=== PATIENT | female | born 1950 | race American Indian/Alaskan Native ===

== ENCOUNTER 2019-01-14 10:43 | Inpatient (IN) | payer MEDICARE ==
[2019-01-14] MEDS ORDERED: DEXTROSE 50% IN WATER (25GM) 50 ML SYRINGE IV PRN (13:57)
[2019-01-14] MEDS ORDERED: POLYETHYLENE GLYCOL 3350 17 GM POWDER PO PRN (14:10)
[2019-01-14] MEDS ORDERED: ONDANSETRON 4 MG ODT TAB PO PRN (14:10)
[2019-01-14] MEDS ORDERED: ACETAMINOPHEN 325 MG TAB PO PRN (14:10)
[2019-01-14] MEDS ORDERED: oxyCODONE /ACETAMINOPHEN 5-325MG TAB PO PRN (14:12)
--- NOTE | 2019-01-14 16:06 | History and Physical Report ---
History of Present Illness Date: 01/14/19 Date of admission: 01/14/19 15:47 Chief Complaint: CVA History of present illness: 68-year-old female who presented with progressive right-sided weakness over a period of 2 weeks. After symptoms had not improved in that. At time she decided to seek assistance at the ER. She was admitted for presumptive CVA, CT of the head showed bilateral basal ganglia age indeterminate infarcts. Later an MRI was obtained which showed chronic small vessel disease and multiple lacunar infarcts but no findings of an acute CVA (however a left MCA CVA was mentioned in discharge paperwork, perhaps they were able to see something on imaging that the radiologist missed and that I cannot see with just the available report). She does not seek medical treatment on a regular basis and has untreated type 2 diabetes, A1c is 13.3. She was also found to be anemic but does not appear to have been treated for iron deficiency. We will reorder an anemia workup and treat appropriately. She was seen by therapy and determined to be a good c andidate for acute inpatient rehabilitation. Patient also states that she does not have part B for her Medicare and does not see an physician on the outside. We'll need to have social work speak with her and help her with some programs to get her better coverage if she will need to have outpatient follow-up going forward with the stroke and the poorly controlled diabetes. After the patient was medically stabilized they were transferred for further rehabilitation. All available medical records have been reviewed. Plan of care was discussed with patient. Past History Past Medical History: diabetes Past Surgical History: No surgical history Social history: lives with family (daughter), smoking, full code, other (1 level home. Stopped driving on her own.). denies: alcohol abuse, IV drug use Family history: hypertension Medications and Allergies Allergies Allergy/AdvReac Type Severity Reaction Status Date / Time No Known Allergies Allergy Verified 01/14/19 14:21 Active Meds: Active Medications Acetaminophen (Tylenol) 650 mg PO Q6H PRN PRN Reason: Non Cardiac Pain or Temp>100.5 Aspirin (Ecotrin) 325 mg PO QDAY BRUCE Atorvastatin Calcium (Lipitor) 40 mg PO QHS BRUCE Bisacodyl (Dulcolax) 10 mg RI QDAY PRN PRN Reason: Constipation Dextrose (D50w (25gm) Syringe) 50 ml IV Q30MIN PRN; Protocol PRN Reason: Hypoglycemia Enoxaparin Sodium (Enoxaparin) 40 mg SUB-Q QDAY BRUCE Glimepiride (Amaryl) 1 mg PO QDDIAB [facility] Insulin Human Lispro (Humalog) 0 unit SUB-Q ACHS [facility]; Protocol Metformin HCl (Glucophage) 500 mg PO BIDDIAB [facility] Ondansetron HCl (Zofran Odt) 4 mg PO Q8H PRN PRN Reason: Nausea And Vomiting Oxycodone/Acetaminophen (Percocet 5/325) 1 tab PO Q8H PRN PRN Reason: Pain, Moderate (4-6) Polyethylene Glycol (Miralax 3350) 17 gm PO QDAY PRN PRN Reason: Constipation Review of Systems All systems: negative (ROS negative for 12 systems except as noted below with pertinent positives and negatives.) Constitutional: no weight loss, no fever Ears, nose, mouth and throat: no decreased hearing Cardiovascular: no chest pain, no palpitations Respiratory: no cough Gastrointestinal: constipation, no abdominal pain, no nausea, no vomiting, no diarrhea Integumentary: no rash, no pruritis Neurological: parathesias, lack of coordination, gait dysfunction Exam - Exam Narrative exam: MUSCULOSKELETAL SPECIALTY EXAM CONSTITUTIONAL: Well developed, well nourished, appropriately groomed. RIGHT hand dominant. LYMPHATIC: No appreciable abnormalities palpable in neck RESPIRATORY: Clear to auscultation bilaterally, no increased work of breathing CARDIOVASCULAR: Regular Rate/ Rhythm, no swelling, edema or tenderness in BUE or BLE. Pulses palpable in all extremities. All extremities warm. GI: + bowel sounds, soft, NTTP, nondistended. INTEGUMENTARY: Normal, no lesion, rash, masses or bruising noted in extremities. MUSCULOSKELETAL: BUE and BLE normal without defect, crepitus, subluxation, effusion, arthritic changes or TTP. R 3/5 UE 4-/5 LE L 5/5 ROM decreased on right Tone increased on RUE, normal otherwise NEURO: CN II : Visual perales full to confrontation CN II, III : PERRL CN III, IV, : EOMI CN V : Facial sensation intact CN VII : Right facial droop CN VIII : Hearing intact to finger rustle CN IX, X : Palate/uvula elevate midline, phonation normal CN XI : Decreased shoulder shrug on right, normal on left and head rotation CN XII : Tongue protrudes midline Sensation intact in all extremities with extinction on right. Reflexes 3+ on Right and 2+ on left at biceps, brachioradialis and patella. No clonus at ankles. Coordination impaired in RUE. No tremor noted in 4 extremities. Naming and repetition intact. Follows 2 step commands. Aphasia not appreciated Dysarthria not appreciated Dysphagia not appreciated Neglect not appreciated POSTURE and GAIT: Sitting posture good. Balance appears reasonable. Gait deferred until seen with therapy. PSYCH: Alert, oriented x3, affect appears flat. Insight appears intact. Assessment and Plan Assessment and plan: Patient was assessed and evaluated for Acute Inpatient Rehab Unit. Due to the patients above-mentioned medical complexity, along with decreased functional mobility and self care, this patient continues to require and be appropriate for a comprehensive, multidisciplinary [id number] rehabilitation program. These needs cannot be met in an outpatient or other less intensive setting. The patient would continue to benefit from skilled therapy intervention for at least 3 hours per day, five days a week, with techniques specific to the needs of the patient to improve function, activities of daily living, and reintegration into the community. The patient continues to require: -- OT to improve ROM, self-care, and learn use of adaptive equipment -- PT to improve strength and balance, functional transfers, and ambulation with energy conservation techniques to improve functional mobility -- [employer]HOU[employer] to address cognitive deficits and swallowing ability -- 24 hour RN to ensure and prevent skin breakdown, promote progressive independence while ensuring safety, ensure education regarding medications, and incorporation of the rehabilitation at the bedside -- 24 hour Top Stitcher to coordinate this interdisciplinary program, and to manage/prevent complications as a result of the patients medical comorbidities. -Plan of care by day 4 -Weekly team conferences With such a program, there is a reasonable certainty that the goals individualized for this patient can be achieved within the specified length of stay. CVA: Continue secondary stroke prevention. Discussed prognosis and recovery time frame with patient. Explained secondary stroke prevention. Discussed access to outpatient healthcare as well as her need to discontinue tobacco use. Diabetes, poorly controlled: Continue medications and adjust as needed for improved glycemic control. A1c greater than 13 at outside hospital. We'll need to follow-up with a new PCP and also will need diabetic teaching. Constipation: Start bowel medications. Will use suppository tonight as it's been a week since she's had a bowel movement. Anemia: Microcytic and iron deficient at outside hospital however treatment was not started. We'll recheck anemia profile to make sure that nothing is change in with the information gained tomorrow will start iron replacement as necessary. Z73.6 ADL dysfunction: OT will work on improving ability to perform ADLs (including assistive devices) to increase independence and decrease caregiver burden and improve functional transfers and mobility training. R26.2 Difficulty walking: PT will work on gait training and proper use of assistive devices and advance as appropriate to use of stairs and outside ambulation on uneven surfaces. R26.81 Unsteadiness on feet: PT will work on improving static and dynamic s itting and standing balance as well as proper use of assistive devices to decrease risk of falls. R26.89 Abnormality of gait: PT will work to improve safety and efficiency of gait through neuromotor training and gait training along with instruction on proper use of assistive devices. M62.81 Muscle weakness: PT & OT will work on strengthening exercises to improve functional strength including mixture of closed and open kinetic chain exercises. R53.81 Debility: PT & OT will work on improving overall functional status to improve participation with ADLs, mobility and social involvement. R53.83 Fatigue: PT & OT will work on improving endurance through aerobic exercises and therapeutic activity while monitoring patients tolerance for activity and vital signs as needed. DVT ppx: Lovenox Pain: Continue physical modalities in therapy and pain medications as needed to achieve functional pain control. Sleep: Monitor and address as needed. Bowel: Monitor and address as needed. Appetite: Monitor and address as needed. Discharge planning: Pending therapy progress and care plan meeting. Will continue discussion with therapy team, SW, patient and family. Restrictions/ Precautions: Falls, stroke WB status: FWB Functional Hx: ADLs: Independent Cognition: Independent Mobility: No AD Barriers to Discharge: Decreased mobility and ability to perform self care, balance deficits, weakness Estimated Length of Stay: 1421 days Discharge Destination: Home with family POST ADMISSION PHYSICIAN EVALUATION I have examined the patient and find that functional status, medical condition and appropriateness for IRF admission are essentially unchanged from those described in the preadmission screening. Will monitor for worsening CVA, post stroke depression, shoulder-hand syndrome, DVT/PE, bowel and bladder complications and complications due to uncontrolled diabetes, anemia and electrolyte abnormalities. Will attempt to avoid occurrence of these issues or treat them if they present themselves.
[2019-01-14] MEDS: metFORMIN 500 MG TAB PO SCH (17:45)
[2019-01-14] MEDS: INSULIN LISPRO 100 UNIT/ML SUB-Q SCH ×2 (17:45→22:29)
[2019-01-15] MEDS ORDERED: cloNIDine 0.1 MG TAB PO ONE (06:20)
[2019-01-15 06:38] LABS: Basophils % (Auto) 0.5 % (0.0-1.8); Eosinophils # (Auto) 0.1 K/mm3 (0.0-0.4); Eosinophils % (Auto) 0.8 % (0.0-4.3); Hematocrit 30.1 % (30.3-42.9); Hemoglobin 9.1 gm/dl (10.1-14.3); Lymphocytes # (Auto) 1.9 K/mm3 (1.2-5.4); Lymphocytes % (Auto) 28.7 % (13.4-35.0); Mean Corpuscular HGB Conc 30 % (30-34); Monocytes # (Auto) 0.6 K/mm3 (0.0-0.8); Monocytes % (Auto) 8.6 % (0.0-7.3); Platelet Count 215 K/mm3 (140-440); Red Blood Count 4.84 M/mm3 (3.65-5.03); Red Cell Distribution Width 18.8 % (13.2-15.2)
[2019-01-15 06:42] LABS: Mean Corpuscular Volume 62 fl (79-97)
[2019-01-15 06:56] LABS: Alanine Aminotransferase 92 units/L (7-56); Albumin 3.5 g/dL (3.9-5); BUN/Creatinine Ratio 15; Blood Urea Nitrogen 12 mg/dL (7-17); Calcium 8.9 mg/dL (8.4-10.2); Hemolysis Index 0
[2019-01-15] MEDS ORDERED: GLIMEPIRIDE 2 MG TAB PO SCH ×2 (08:00→10:50)
[2019-01-15] MEDS: ASPIRIN EC 325 MG TAB PO SCH (08:48)
[2019-01-15] MEDS: metFORMIN 500 MG TAB PO SCH ×2 (08:48→18:11)
[2019-01-15] MEDS: INSULIN LISPRO 100 UNIT/ML SUB-Q SCH ×4 (08:50→22:05)
[2019-01-15] MEDS: ENOXAPARIN 40 MG/0.4 ML INJ SUB-Q SCH (08:50)
--- NOTE | 2019-01-15 10:44 | Progress Note ---
Subjective Date of service: 01/15/19 Principal diagnosis: CVA Interval history: 68-year-old female who presented with progressive right-sided weakness over a period of 2 weeks. After symptoms had not improved in that. At time she decided to seek assistance at the ER. She was admitted for presumptive CVA, CT of the head showed bilateral basal ganglia age indeterminate infarcts. Later an MRI was obtained which showed chronic small vessel disease and multiple lacunar infarcts but no findings of an acute CVA (however a left MCA CVA was mentioned in discharge paperwork, perhaps they were able to see something on imaging that the radiologist missed and that I cannot see with just the available report). She does not seek medical treatment on a regular basis and has untreated type 2 diabetes, A1c is 13.3. She was also found to be anemic but does not appear to have been treated for iron deficiency. We will reorder an anemia workup and treat appropriately. She was seen by therapy and determined to be a good candidate for acute inpatient rehabilitation. Patient also states that she does not have part B for her Medicare and does not see an physician on the outside. We'll need to have social work speak with her and help her with some programs to get her better coverage if she will need to have outpatient follow-up going forward with the stroke and the poorly controlled diabetes. Patient is participating in therapy and making reasonable progress. Taking rest breaks as needed. +BM. Denies pain, palpitations, dyspnea, cough, N/V, or joint pain. Does have some dizziness currently. BP 88/49. Was called this AM and informed that SBP has been 160-180s overnight. Gave clonidine 0.1mg x 1 dose. BP went from 185/69 to 108/59 and is now at 88/49 6hrs later. Will start IV fluids and check orthostats. Start low dose lisinopril in AM. GLU is elevated, increase glimeperide. Start iron and Vit C for anemia and monitor Hgb. Discussed with patient All records, vitals, labs and medications were reviewed. No other issues per patient, nursing or therapy. Objective - Exam Narrative Exam: MUSCULOSKELETAL SPECIALTY EXAM CONSTITUTIONAL: Well developed, well nourished, appropriately groomed. RIGHT hand dominant. RESPIRATORY: Clear to auscultation bilaterally, no increased work of breathing CARDIOVASCULAR: Regular Rate/ Rhythm, no swelling, edema or tenderness in BUE or BLE. All extremities warm. GI: + bowel sounds, soft, NTTP, nondistended. INTEGUMENTARY: Normal, no lesion, rash, masses or bruising noted in extremities. MUSCULOSKELETAL: BUE and BLE normal without defect, crepitus, subluxation, effusion, arthritic changes or TTP. R 2/5 UE, weaker today, post therapy and tired 4-/5 LE L 5/5 ROM decreased on right Tone increased on RUE, normal otherwise NEURO: CN VII : Right facial droop CN XI : Decreased shoulder shrug on right, normal on left and head rotation Sensation intact in all extremities with extinction on right. No tremor noted in 4 extremities. Naming and repetition intact. Follows 2 step commands. Aphasia not appreciated Dysarthria not appreciated Dysphagia not appreciated Neglect not appreciated POSTURE and GAIT: Sitting posture good. Balance appears reasonable. Gait deferred until seen with therapy. PSYCH: Alert, oriented x3, affect appears flat. Insight appears intact. - Constitutional Vitals: Vital Signs - 12hr 01/15/19 01/15/19 01/15/19 05:01 06:20 07:53 Temperature 36.4 C L 36.8 C Pulse Rate 81 83 72 Respiratory 18 16 Rate Blood Pressure 173/81 185/69 108/59 O2 Sat by Pulse 97 96 Oximetry - Allied health notes Allied health notes reviewed: nursing, PT, ST, OT FIMS assessment as documented by PT/OT/ST: Social interaction/Memory/Problem solving Social Interaction FIM Score 7. Complete [place] (Interacts appropriately. Controls temper.) Memory FIM Score 7. Complete [place] (Remembers people and routines.) Problem Solving FIM Score 6. Mod. [place] (Mild difficulty or needs more time w/ complex.) - Labs CBC & Chem 7: 01/15/19 06:09 01/15/19 06:09 Labs: Laboratory Results - last 72 hr 01/14/19 01/14/19 01/15/19 17:22 21:22 06:09 WBC 6.8 RBC 4.84 Hgb 9.1 L Hct 30.1 L MCV 62 L MCH 19 L MCHC 30 RDW 18.8 H Plt Count 215 Lymph % (Auto) 28.7 [place] % (Auto) 8.6 H Eos % (Auto) 0.8 Baso % (Auto) 0.5 Lymph # 1.9 [place] # 0.6 Eos # 0.1 Baso # 0.0 Seg Neutrophils % 61.4 Seg Neutrophils # 4.2 Sodium Potassium Chloride Carbon Dioxide Anion Gap BUN Creatinine Estimated GFR BUN/Creatinine Ratio Glucose POC Glucose 272 H 291 H Calcium Magnesium Iron TIBC Ferritin Total Bilirubin AST ALT Alkaline Phosphatase Total Protein Albumin Albumin/Globulin Ratio Vitamin B12 Folate 01/15/19 01/15/19 01/15/19 06:09 06:09 06:09 WBC RBC Hgb Hct MCV MCH MCHC RDW Plt Count Lymph % (Auto) [place] % (Auto) Eos % (Auto) Baso % (Auto) Lymph # [place] # Eos # Baso # Seg Neutrophils % Seg Neutrophils # Sodium 137 Potassium 4.3 Chloride 102.5 Carbon Dioxide 25 Anion Gap 14 BUN 12 Creatinine 0.8 Estimated GFR > 60 BUN/Creatinine Ratio 15 Glucose 238 H POC Glucose Calcium 8.9 Magnesium 1.80 Iron 15 L TIBC 233 L Ferritin 359.0 Total Bilirubin 0.60 AST 74 H ALT 92 H Alkaline Phosphatase 229 H Total Protein 6.9 Albumin 3.5 L Albumin/Globulin Ratio 1.0 Vitamin B12 Folate 01/15/19 01/15/19 01/15/19 06:09 06:09 08:03 WBC RBC Hgb Hct MCV MCH MCHC RDW Plt Count Lymph % (Auto) [place] % (Auto) Eos % (Auto) Baso % (Auto) Lymph # [place] # Eos # Baso # Seg Neutrophils % Seg Neutrophils # Sodium Potassium Chloride Carbon Dioxide Anion Gap BUN Creatinine Estimated GFR BUN/Creatinine Ratio Glucose POC Glucose 270 H Calcium Magnesium Iron TIBC Ferritin Total Bilirubin AST ALT Alkaline Phosphatase Total Protein Albumin Albumin/Globulin Ratio Vitamin B12 1169 H Folate 11.44 Assessment and Plan CVA: Continue secondary stroke prevention. Discussed prognosis and recovery time frame with patient. Explained secondary stroke prevention. Discussed access to outpatient healthcare as well as her need to discontinue tobacco use. Diabetes, poorly controlled: Continue medications and adjust as needed for improved glycemic control. A1c greater than 13 at outside hospital. We'll need to follow-up with a new PCP and also will need diabetic teaching. Adjust glimepiride Constipation: Start bowel medications. Will use suppository tonight as it's been a week since she's had a bowel movement. Anemia: Microcytic and iron deficient at outside hospital however treatment was not started. Replace Fe and VitC Hypertension: Start lisinopril and adjust for normotension Hypotensive episode - IVF with NS x 2L Z73.6 ADL dysfunction: OT will work on improving ability to perform ADLs (including assistive devices) to increase independence and decrease caregiver burden and improve functional transfers and mobility training. R26.2 Difficulty walking: PT will work on gait training and proper use of assistive devices and advance as appropriate to use of stairs and outside ambulation on uneven surfaces. R26.81 Unsteadiness on feet: PT will work on improving static and dynamic sitting and standing balance as well as proper use of assistive devices to decrease risk of falls. R26.89 Abnormality of gait: PT will work to improve safety and efficiency of gait through neuromotor training and gait training along with instruction on proper use of assistive devices. M62.81 Muscle weakness: PT & OT will work on strengthening exercises to improve functional strength including mixture of closed and open kinetic chain exercises. R53.81 Debility: PT & OT will work on improving overall functional status to improve participation with ADLs, mobility and social involvement. R53.83 Fatigue: PT & OT will work on improving endurance through aerobic exercises and therapeutic activity while monitoring patients tolerance for activity and vital signs as needed. DVT ppx: Lovenox Pain: Continue physical modalities in therapy and pain medications as needed to achieve functional pain control. Sleep: Monitor and address as needed. Bowel: Monitor and address as needed. Appetite: Monitor and address as needed. Discharge planning: Pending therapy progress and care plan meeting. Will continue discussion with therapy team, SW, patient and family. Restrictions/ Precautions: Falls, stroke WB status: FWB Functional Hx: ADLs: Independent Cognition: Independent Mobility: No AD Barriers to Discharge: Decreased mobility and ability to perform self care, balance deficits, weakness Estimated Length of Stay: 1421 days Discharge Destination: Home with family
[2019-01-15] MEDS ORDERED: SODIUM CHLORIDE 0.9% 1000 ML 1,000 ML IV SCH (13:00)
[2019-01-15] MEDS: DOCUSATE SODIUM 100 MG CAP PO SCH (22:04)
[2019-01-15] MEDS: ASCORBIC ACID 500 MG TAB PO SCH (22:04)
[2019-01-15] MEDS: FERROUS SULFATE 325 MG TAB PO SCH (22:05)
[2019-01-16] MEDS: INSULIN LISPRO 100 UNIT/ML SUB-Q SCH ×4 (08:29→21:43)
[2019-01-16] MEDS: LISINOPRIL 10 MG TAB PO SCH (08:30)
[2019-01-16] MEDS: DOCUSATE SODIUM 100 MG CAP PO SCH ×2 (08:30→21:42)
[2019-01-16] MEDS: FERROUS SULFATE 325 MG TAB PO SCH ×2 (08:30→21:43)
[2019-01-16] MEDS: ASPIRIN EC 325 MG TAB PO SCH (08:30)
[2019-01-16] MEDS: ASCORBIC ACID 500 MG TAB PO SCH ×2 (08:30→21:42)
[2019-01-16] MEDS: GLIMEPIRIDE 2 MG TAB PO SCH (08:30)
[2019-01-16] MEDS: ENOXAPARIN 40 MG/0.4 ML INJ SUB-Q SCH (08:30)
[2019-01-16] MEDS: metFORMIN 500 MG TAB PO SCH ×2 (08:30→17:29)
[2019-01-17] MEDS: INSULIN LISPRO 100 UNIT/ML SUB-Q SCH ×5 (07:21→21:44)
[2019-01-17] MEDS: ENOXAPARIN 40 MG/0.4 ML INJ SUB-Q SCH (08:05)
[2019-01-17] MEDS: ASPIRIN EC 325 MG TAB PO SCH (08:06)
[2019-01-17] MEDS: LISINOPRIL 10 MG TAB PO SCH (08:07)
[2019-01-17] MEDS: DOCUSATE SODIUM 100 MG CAP PO SCH ×2 (08:07→21:39)
[2019-01-17] MEDS: metFORMIN 500 MG TAB PO SCH ×2 (08:07→16:55)
[2019-01-17] MEDS: FERROUS SULFATE 325 MG TAB PO SCH ×2 (08:07→21:39)
[2019-01-17] MEDS: ASCORBIC ACID 500 MG TAB PO SCH ×2 (08:07→21:39)
[2019-01-17] MEDS: GLIMEPIRIDE 2 MG TAB PO SCH (08:08)
--- NOTE | 2019-01-17 21:23 | IRU Plan of Care ---
Interdisciplinary Plan of Care - IP IRU INTERDISCIPLINARY PLAN: [facility] Inpatient Rehab Unit Plan of Care IRU Interdisciplinary Care Plan Start: 01/14/19 16:57 Freq: Admission then PRN Status: Active Protocol: Document 01/17/19 15:22 TH (Rec: 01/17/19 15:26 TH [id number]) Interdisciplinary Problem List Interdisciplinary Problem List Interdisciplinary Problem List Impaired Bathing/Grooming, Query Text:Answers will Trigger Problems Impaired Dressing,Impaired and Outcomes on Worklist. Mobility,Impaired Transfers, Impaired Problem Solving, Knowledge Deficits,Discharge Concerns,Impaired Home Management,Impaired Safety, Diabetes Education,Impaired Cardiovascular System IRU Interdisciplinary Care Plan Therapy Services Therapy Services Will Include: Physical Therapy,Occupational Query Text:Patient will be seen for a Therapy minimum of 3 hours of daily therapy 5 out of 7 days a week. Therapy intensity may be adjusted within a 7 consecutive day period to effectively serve the individual needs of the patient. Treatment Frequency/Intensity/Duration Treatment Frequency 5x per week Treatment Intensity 3 hours per day Treatment Duration 14-21 days Problem Area: Eating/Swallowing Eating/Swallowing Outcomes Eating/Swallowing Interventions Problem Area: Bathing/Grooming Bathing/Grooming Outcomes Improve [place] w/ Grooming,Improve [place] w/ Bathing Bathing/Grooming Interventions ADL Training,Use of Assistive Devices,Therapeutic Exercise, Therapeutic Activity, Neuromuscular Re-Education, Balance Work,Activity Tolerance Work,Patient/ Caregiver Education Problem Area: Dressing Dressing Outcomes Improve [place] w/ UB Dressing,Improve [place] w/ LB Dressing Dressing Interventions ADL Training,Use of Assistive Devices,Neuromuscular Re- Education,Therapeutic Exercise ,Balance Work,Modalities, Patient/Caregiver Education Problem Area: Mobility Mobility Outcomes Improve [place] w/ Bed Mobility,Improve [place] w/ Ambulation,Improve [place] w/ Stairs/Curb, Improve [place] w/ Wheelchair Mobility Interventions Therapeutic Exercise, Neuromuscular Re-Ed.,Visual/ Perceptual Training,Activity Tolerance Work,Modalities,Use of Assistive Devices,Patient/ Caregiver Education,Bed Mobility Work,Gait Training, Household Mobility Work,W/C Mobility Work Problem Area: Transfers Transfers Outcomes Improve [place] w/ Bed Transfers,Improve [place] w/ Toilet Transfers,Improve [place] w/ Tub/Shower Transfers,Improve [place] w/ Car Transfers Transfers Interventions Transfer Training,Therapeutic Exercise,Neuromuscular Re- Education,Visual/Perceptual Training,Activity Tolerance Work,Modalities,Use of Assistive Devices,Patient/ Caregiver Education Problem Area: Bowel/Bladder Managment Bowel/Bladder Outcomes Bowel/Bladder Interventions Problem Area: Toileting Toileting Outcomes Improve [place] w/ Toileting Toileting Interventions ADL Training,Balance Work,Use of Assistive Devices,Patient/ Caregiver Education Problem Area: Nutrition Nutrition Outcomes Nutrition Interventions Problem Area: Comprehension Comprehension Outcomes Comprehension Interventions Problem Area: Expression Expression Outcomes Expression Interventions Problem Area: Problem Solving Problem Solving Outcomes Improve Problem Solving Problem Solving Interventions Cognitive Training,Visual/ Perceptual Training,Safety Education,Patient/Caregiver Education Problem Area: Memory Memory Outcomes Memory Interventions Problem Area: Pain Management Pain Management Outcomes Pain Management Interventions Problem Area: Knowledge Deficits Knowledge Deficits Outcomes Demonstrate Ability to Manage Blood Glucose,Verbalize Understanding of S/S of Stroke Knowledge Deficits Interventions Disease/Injury/Sx. Intervention Education, Medication Use Education, Disease Management Education, Safety Education Problem Area: Skin/Tissue Integrity Skin/Tissue Integrity Outcomes Skin/Tissue Integrity Interventions Problem Area: Social Interaction Social Interaction Outcomes Social Interaction Interventions Problem Area: Adjustment to Disability Adjustment to Disability Outcomes Adjustment to Disability Interventions Problem Area: Discharge Concerns Discharge Concerns Outcomes Discharge w/ Necessary Equipment,Have Home Health/ Outpatient Services Discharge Concerns Interventions Discharge Planning,Equipment Assessment, Acquisition and Placement,Family/Caregiver Training Problem Area: Community Reintegration Community Reintegration Outcomes Demonstrate Understanding of Community Resources,Able to Re -Enter the Community Community Reintegration Interventions Community Outing,Activity Tolerance Work,Leisure Activity,Leisure Counseling Problem Area: Home Management Home Management Outcomes Improve [place] w/ Home Management Home Management Interventions Meal Preparation,Clothing Care ,Activity Tolerance Work, Leisure Skills Development, House Cleaning,Patient/ Caregiver Education Problem Area: Safety Safety Outcomes Provide Safe Environment, Perform Selfcare Safely, Demonstrate Good Safety w/ Transfers/Mobility Safety Interventions Identify Fall Risk,[place] Pt. to Environment,Reduce Environmental Hazards,Neuro Check Assessment,Implement Mechanical Devices, i.e. Chair Alarm (Post Fall Update),Re- Educate Patient/Caregiver for Safety (Post Fall Update) Problem Area: Medication Education Medication Education Outcomes Medication Education Interventions Problem Area: Diabetes Education Diabetes Education Outcomes Demonstrate Knowledge of Resources Availlable in Diabetic Ed. Folder Diabetes Education Interventions Give Pt. Diabetes Education Folder,Discuss Pathophysiology of Diabetes Problem Area: Oxygenation Oxygenation Outcomes Oxygenation Interventions Problem Area: Cardiovascular Cardiovascular Outcomes Maintain or Improve Cardiovascular Status Cardiovascular Interventions Assess Vital Signs at least Every 4 hours Physician Only Medical Prognosis and Rehabilitation Potential (Completed by Physician) Good rehab potential, good medical prognosis. Poor medical care in past, will need to follow up with a PCP and maintain medical care, otherwise she will have a poor prognostic outlook. This plan of care has been developed based on the findings from the pre- admission assessment, post admission physician evaluation, information gathered from the assessments from all therapy disciplines and other pertinent clinicians. The plan of care has been reviewed and discussed in collaboration with the interdisciplinary team. The plan of care will be reviewed and updated at least weekly.
[2019-01-18] MEDS: INSULIN LISPRO 100 UNIT/ML SUB-Q SCH ×4 (08:50→22:57)
[2019-01-18] MEDS: GLIMEPIRIDE 2 MG TAB PO SCH (08:56)
[2019-01-18] MEDS: ENOXAPARIN 40 MG/0.4 ML INJ SUB-Q SCH (08:56)
[2019-01-18] MEDS: DOCUSATE SODIUM 100 MG CAP PO SCH ×2 (08:56→22:24)
[2019-01-18] MEDS: LISINOPRIL 10 MG TAB PO SCH (08:56)
[2019-01-18] MEDS: FERROUS SULFATE 325 MG TAB PO SCH ×2 (08:56→22:24)
[2019-01-18] MEDS: ASPIRIN EC 325 MG TAB PO SCH (08:56)
[2019-01-18] MEDS: ASCORBIC ACID 500 MG TAB PO SCH ×2 (08:56→22:24)
[2019-01-18] MEDS: metFORMIN 500 MG TAB PO SCH ×2 (10:01→17:53)
--- NOTE | 2019-01-18 10:08 | Progress Note ---
Subjective Date of service: 01/18/19 Principal diagnosis: CVA Interval history: 68-year-old female who presented with progressive right-sided weakness over a period of 2 weeks. After symptoms had not improved in that. At time she decided to seek assistance at the ER. She was admitted for presumptive CVA, CT of the head showed bilateral basal ganglia age indeterminate infarcts. Later an MRI was obtained which showed chronic small vessel disease and multiple lacunar infarcts but no findings of an acute CVA (however a left MCA CVA was mentioned in discharge paperwork, perhaps they were able to see something on imaging that the radiologist missed and that I cannot see with just the available report). She does not seek medical treatment on a regular basis and has untreated type 2 diabetes, A1c is 13.3. She was also found to be anemic but does not appear to have been treated for iron deficiency. We will reorder an anemia workup and treat appropriately. She was seen by therapy and determined to be a good candidate for acute inpatient rehabilitation. Patient also states that she does not have part B for her Medicare and does not see an physician on the outside. We'll need to have social work speak with her and help her with some programs to get her better coverage if she will need to have outpatient follow-up going forward with the stroke and the poorly controlled diabetes. Patient is participating in therapy and making reasonable progress. Taking rest breaks as needed. +BM. Denies pain, palpitations, dyspnea, cough, N/V, or joint pain. BP better on current meds. GLU improved. Anemia stable, monitor Hgb. Discussed with patient All records, vitals, labs and medications were reviewed. No other issues per patient, nursing or therapy. Objective - Exam Narrative Exam: MUSCULOSKELETAL SPECIALTY EXAM CONSTITUTIONAL: Well developed, well nourished, appropriately groomed. RIGHT hand dominant. RESPIRATORY: Clear to auscultation bilaterally, no increased work of breathing CARDIOVASCULAR: Regular Rate/ Rhythm, no swelling, edema or tenderness in BUE or BLE. All extremities warm. GI: + bowel sounds, soft, NTTP, nondistended. INTEGUMENTARY: Normal, no lesion, rash, masses or bruising noted in extremities. MUSCULOSKELETAL: BUE and BLE normal without defect, crepitus, subluxation, effusion, arthritic changes or TTP. R 2/5 UE, weaker today, 3/5 LE L 5/5 ROM decreased on right Tone increased on RUE, normal otherwise NEURO: CN VII : Right facial droop CN XI : Decreased shoulder shrug on right, normal on left and head rotation Sensation intact in all extremities with extinction on right. No tremor noted in 4 extremities. Naming and repetition intact. Follows 2 step commands. Aphasia not appreciated Dysarthria not appreciated Dysphagia not appreciated Neglect not appreciated POSTURE and GAIT: Sitting posture good. Balance appears reasonable. Gait deferred until seen with therapy. PSYCH: Alert, oriented x3, affect appears flat. Insight appears intact. - Constitutional Vitals: Vital Signs - 12hr 01/18/19 01/18/19 01/18/19 00:03 04:37 08:56 Temperature 36.9 C 37.1 C Pulse Rate 86 81 81 Respiratory 16 16 Rate Blood Pressure 139/59 119/58 119/58 O2 Sat by Pulse 96 100 Oximetry - Allied health notes Allied health notes reviewed: nursing, PT, OT FIMS assessment as documented by PT/OT/ST: Social interaction/Memory/Problem solving Social Interaction FIM Score 5. Supervision (Needs supv. <10%. Needs encouragement to participate.) Memory FIM Score 7. Complete [place] (Remembers people and routines.) Problem Solving FIM Score 6. Mod. [place] (Mild difficulty or needs more time w/ complex.) Transfers Mode of Locomotion: Wheelchair Bed/Chair/Wheelchair Transfers 4. Minimal Assistance (Patient = 75% or more. FIM Score Needs touching.) Locomotion- walk/wheelchair Most Frequent Mode of Wheelchair Locomotion: Ambulation Distance 50 Walking FIM Score 3. Moderate Assistance (Patient=50% or more. Lifting. Minimum 150 ft.) Wheelchair Propulsion Distance 75 Wheelchair FIM Score 4. Minimal Assistance (Patient = 75% or more. Minimum of 150 ft.) Eating Eating FIM Score 4. Minimal Assistance (Patient = 75% or more) - Labs CBC & Chem 7: 01/18/19 12:45 01/18/19 12:45 Labs: Laboratory Results - last 72 hr 01/15/19 01/15/19 01/15/19 11:50 16:32 19:51 POC Glucose 256 H 179 H 314 H 01/16/19 01/16/19 01/16/19 07:46 12:19 17:00 POC Glucose 223 H 209 H 204 H 01/16/19 01/17/1919 20:43 07:30 11:45 POC Glucose 207 H 185 H 216 H 01/17/19 01/17/19 01/18/19 16:23 19:36 08:14 POC Glucose 137 H 176 H 146 H Assessment and Plan CVA: Continue secondary stroke prevention. Discussed prognosis and recovery time frame with patient. Explained secondary stroke prevention. Discussed access to outpatient healthcare as well as her need to discontinue tobacco use. Diabetes, poorly controlled: Continue medications and adjust as needed for improved glycemic control. A1c greater than 13 at outside hospital. We'll need to follow-up with a new PCP and also will need diabetic teaching. Adjust glimepiride Constipation: Start bowel medications. Will use suppository tonight as it's been a week since she's had a bowel movement. Anemia: Microcytic and iron deficient at outside hospital however treatment was not started. Replace Fe and VitC Hypertension: Start lisinopril and adjust for normotension Hypotensive episode -resolved after IVF, monitor Z73.6 ADL dysfunction: OT will work on improving ability to perform ADLs (including assistive devices) to increase independence and decrease caregiver burden and improve functional transfers and mobility training. R26.2 Difficulty walking: PT will work on gait training and proper use of assistive devices and advance as appropriate to use of stairs and outside ambulation on uneven surfaces. R26.81 Unsteadiness on feet: PT will work on improving static and dynamic sitting and standing balance as well as proper use of assistive devices to decrease risk of falls. R26.89 Abnormality of gait: PT will work to improve safety and efficiency of gait through neuromotor training and gait training along with instruction on proper use of assistive devices. M62.81 Muscle weakness: PT & OT will work on strengthening exercises to improve functional strength including mixture of closed and open kinetic chain exercises. R53.81 Debility: PT & OT will work on improving overall functional status to improve participation with ADLs, mobility and social involvement. R53.83 Fatigue: PT & OT will work on improving endurance through aerobic exercises and therapeutic activity while monitoring patients tolerance for activity and vital signs as needed. DVT ppx: Lovenox Pain: Continue physical modalities in therapy and pain medications as needed to achieve functional pain control. Sleep: Monitor and address as needed. Bowel: Monitor and address as needed. Appetite: Monitor and address as needed. Discharge planning: Pending therapy progress and care plan meeting. Will continue discussion with therapy team, SW, patient and family. Restrictions/ Precautions: Falls, stroke WB status: FWB Functional Hx: ADLs: Independent Cognition: Independent Mobility: No AD Barriers to Discharge: Decreased mobility and ability to perform self care, balance deficits, weakness Estimated Length of Stay: 1421 days Discharge Destination: Home with family
[2019-01-18 13:38] LABS: Mean Corpuscular HGB Conc 30 % (30-34); Platelet Count 288 K/mm3 (140-440); Red Blood Count 4.85 M/mm3 (3.65-5.03); Red Cell Distribution Width 19.1 % (13.2-15.2)
[2019-01-18 13:39] LABS: Hematocrit 30.9 % (30.3-42.9); Hemoglobin 9.2 gm/dl (10.1-14.3); Mean Corpuscular Volume 64 fl (79-97)
[2019-01-18 13:55] LABS: BUN/Creatinine Ratio 16; Blood Urea Nitrogen 14 mg/dL (7-17); Calcium 9.4 mg/dL (8.4-10.2); Hemolysis Index 9
[2019-01-19] MEDS: INSULIN LISPRO 100 UNIT/ML SUB-Q SCH ×4 (08:23→22:18)
[2019-01-19] MEDS: ENOXAPARIN 40 MG/0.4 ML INJ SUB-Q SCH (08:25)
[2019-01-19] MEDS: GLIMEPIRIDE 2 MG TAB PO SCH (08:25)
[2019-01-19] MEDS: LISINOPRIL 10 MG TAB PO SCH (08:26)
[2019-01-19] MEDS: ASCORBIC ACID 500 MG TAB PO SCH ×2 (08:26→22:17)
[2019-01-19] MEDS: metFORMIN 500 MG TAB PO SCH ×2 (08:26→17:14)
[2019-01-19] MEDS: DOCUSATE SODIUM 100 MG CAP PO SCH ×2 (08:26→22:19)
[2019-01-19] MEDS: ASPIRIN EC 325 MG TAB PO SCH (08:27)
[2019-01-19] MEDS: FERROUS SULFATE 325 MG TAB PO SCH ×2 (08:27→22:17)
--- NOTE | 2019-01-19 10:06 | Progress Note ---
Subjective Date of service: 01/19/19 Principal diagnosis: CVA Interval history: 68-year-old female who presented with progressive right-sided weakness over a period of 2 weeks. After symptoms had not improved in that. At time she decided to seek assistance at the ER. She was admitted for presumptive CVA, CT of the head showed bilateral basal ganglia age indeterminate infarcts. Later an MRI was obtained which showed chronic small vessel disease and multiple lacunar infarcts but no findings of an acute CVA (however a left MCA CVA was mentioned in discharge paperwork, perhaps they were able to see something on imaging that the radiologist missed and that I cannot see with just the available report). She does not seek medical treatment on a regular basis and has untreated type 2 diabetes, A1c is 13.3. She was also found to be anemic but does not appear to have been treated for iron deficiency. We will reorder an anemia workup and treat appropriately. She was seen by therapy and determined to be a good candidate for acute inpatient rehabilitation. Patient also states that she does not have part B for her Medicare and does not see an physician on the outside. We'll need to have social work speak with her and help her with some programs to get her better coverage if she will need to have outpatient follow-up going forward with the stroke and the poorly controlled diabetes. Patient is participating in therapy and making reasonable progress. Taking rest breaks as needed. -BM. Noted the patient is having coughing during meals. States that she's had these since the stroke. Was previously cleared at outside hospital for swallowing. We will have our speech evaluate. Denies pain, palpitations, dyspnea, cough, N/V, or joint pain. BP better on current meds. GLU improved. Anemia stable, monitor Hgb. Discussed with patient All records, vitals, labs and medications were reviewed. No other issues per patient, nursing or therapy. Objective - Exam Narrative Exam: MUSCULOSKELETAL SPECIALTY EXAM CONSTITUTIONAL: Well developed, well nourished, appropriately groomed. RIGHT hand dominant. RESPIRATORY: Clear to auscultation bilaterally, no increased work of breathing CARDIOVASCULAR: Regular Rate/ Rhythm, no swelling, edema or tenderness in BUE or BLE. All extremities warm. GI: + bowel sounds, soft, NTTP, nondistended. INTEGUMENTARY: Normal, no lesion, rash, masses or bruising noted in extremities. MUSCULOSKELETAL: BUE and BLE normal without defect, crepitus, subluxation, effusion, arthritic changes or TTP. R 2/5 UE, weaker today, 3/5 LE L 5/5 ROM decreased on right Tone increased on RUE, normal otherwise NEURO: CN VII : Right facial droop CN XI : Decreased shoulder shrug on right, normal on left and head rotation Sensation intact in all extremities with extinction on right. No tremor noted in 4 extremities. Naming and repetition intact. Follows 2 step commands. Aphasia not appreciated Dysarthria not appreciated Dysphagia not appreciated Neglect not appreciated POSTURE and GAIT: Sitting posture good. Balance appears reasonable. Gait deferred until seen with therapy. PSYCH: Alert, oriented x3, affect appears flat. Insight appears intact. - Constitutional Vitals: Vital Signs - 12hr 01/19/19 01/19/19 01/19/19 04:57 07:14 08:26 Temperature 37.1 C 36.1 C L Pulse Rate 81 83 84 Respiratory 18 18 Rate Blood Pressure 129/50 136/60 136/60 O2 Sat by Pulse 96 100 Oximetry - Allied health notes Allied health notes reviewed: nursing, PT, OT FIMS assessment as documented by PT/OT/ST: Social interaction/Memory/Problem solving Social Interaction FIM Score 4. Minimal Assistance (Interacts appropriately 75-90%.) Memory FIM Score 5. Supervision (Needs cueing <10%, stressful/ unfamiliar situations.) Problem Solving FIM Score 4. Minimal Assistance (Solves routine problems 75-90%.) Transfers Mode of Locomotion: Wheelchair Bed/Chair/Wheelchair Transfers 3. Moderate Assistance (Patient = 50% or more. FIM Score Some lifting.) Locomotion- walk/wheelchair Most Frequent Mode of Wheelchair Locomotion: Ambulation Distance 50 Walking FIM Score 3. Moderate Assistance (Patient=50% or more. Lifting. Minimum 150 ft.) Wheelchair Propulsion Distance 75 Wheelchair FIM Score 4. Minimal Assistance (Patient = 75% or more. Minimum of 150 ft.) Eating Eating FIM Score 4. Minimal Assistance (Patient = 75% or more) - Labs CBC & Chem 7: 01/18/19 12:45 01/18/19 12:45 Labs: Laboratory Results - last 72 hr 01/16/19 01/16/19 01/16/19 12: 17:00 20:43 WBC RBC Hgb Hct MCV MCH MCHC RDW Plt Count Sodium Potassium Chloride Carbon Dioxide Anion Gap BUN Creatinine Estimated GFR BUN/Creatinine Ratio Glucose POC Glucose 209 H 204 H 207 H Calcium 01/17/19 01/17/19 01/17/19 07:30 11:45 16:23 WBC RBC Hgb Hct MCV MCH MCHC RDW Plt Count Sodium Potassium Chloride Carbon Dioxide Anion Gap BUN Creatinine Estimated GFR BUN/Creatinine Ratio Glucose POC Glucose 185 H 216 H 137 H Calcium 01/17/19 01/18/19 01/18/19 19:36 08:14 12:15 WBC RBC Hgb Hct MCV MCH MCHC RDW Plt Count Sodium Potassium Chloride Carbon Dioxide Anion Gap BUN Creatinine Estimated GFR BUN/Creatinine Ratio Glucose POC Glucose 176 H 146 H 246 H Calcium 01/18/19 01/18/19 01/18/19 12:45 12:45 16:14 WBC 6.0 RBC 4.85 Hgb 9.2 L Hct 30.9 MCV 64 L MCH 19 L MCHC 30 RDW 19.1 H Plt Count 288 Sodium 136 L Potassium 4.0 Chloride 98.7 Carbon Dioxide 22 Anion Gap 19 BUN 14 Creatinine 0.9 Estimated GFR > 60 BUN/Creatinine Ratio 16 Glucose 192 H POC Glucose 135 H Calcium 9.4 01/18/19 01/19/19 21:09 07:25 WBC RBC Hgb Hct MCV MCH MCHC RDW Plt Count Sodium Potassium Chloride Carbon Dioxide Anion Gap BUN Creatinine Estimated GFR BUN/Creatinine Ratio Glucose POC Glucose 185 H 160 H Calcium Assessment and Plan CVA: Continue secondary stroke prevention. Discussed prognosis and recovery time frame with patient. Explained secondary stroke prevention. Discussed access to outpatient healthcare as well as her need to discontinue tobacco use. Diabetes, poorly controlled: Continue medications and adjust as needed for improved glycemic control. A1c greater than 13 at outside hospital. We'll need to follow-up with a new PCP and also will need diabetic teaching. Adjust glimepiride Constipation: Start bowel medications. Will use suppository tonight as it's been a week since she's had a bowel movement. Anemia: Microcytic and iron deficient at outside hospital however treatment was not started. Replace Fe and VitC Hypertension: Start lisinopril and adjust for normotension Hypotensive episode -resolved after IVF, monitor Possible dysphagia: [employer]PERATOR evaluation Z73.6 ADL dysfunction: OT will work on improving ability to perform ADLs (inc luding assistive devices) to increase independence and decrease caregiver burden and improve functional transfers and mobility training. R26.2 Difficulty walking: PT will work on gait training and proper use of assistive devices and advance as appropriate to use of stairs and outside ambulation on uneven surfaces. R26.81 Unsteadiness on feet: PT will work on improving static and dynamic sitting and standing balance as well as proper use of assistive devices to decrease risk of falls. R26.89 Abnormality of gait: PT will work to improve safety and efficiency of gait through neuromotor training and gait training along with instruction on proper use of assistive devices. M62.81 Muscle weakness: PT & OT will work on strengthening exercises to improve functional strength including mixture of closed and open kinetic chain exercises. R53.81 Debility: PT & OT will work on improving overall functional status to improve participation with ADLs, mobility and social involvement. R53.83 Fatigue: PT & OT will work on improving endurance through aerobic exercises and therapeutic activity while monitoring patients tolerance for activity and vital signs as needed. DVT ppx: Lovenox Pain: Continue physical modalities in therapy and pain medications as needed to achieve functional pain control. Sleep: Monitor and address as needed. Bowel: Monitor and address as needed. Appetite: Monitor and address as needed. Discharge planning: Pending therapy progress and care plan meeting. Will contin ue discussion with therapy team, SW, patient and family. Restrictions/ Precautions: Falls, stroke WB status: FWB Functional Hx: ADLs: Independent Cognition: Independent Mobility: No AD Barriers to Discharge: Decreased mobility and ability to perform self care, balance deficits, weakness Estimated Length of Stay: 1421 days Discharge Destination: Home with family
[2019-01-20 07:43] LABS: BUN/Creatinine Ratio 19; Blood Urea Nitrogen 15 mg/dL (7-17); Calcium 9.1 mg/dL (8.4-10.2); Hemolysis Index 8
[2019-01-20 07:51] LABS: Hematocrit 29.4 % (30.3-42.9); Hemoglobin 8.9 gm/dl (10.1-14.3); Mean Corpuscular HGB Conc 30 % (30-34); Platelet Count 262 K/mm3 (140-440); Red Blood Count 4.57 M/mm3 (3.65-5.03)
[2019-01-20 07:53] LABS: Mean Corpuscular Volume 64 fl (79-97)
--- NOTE | 2019-01-20 07:56 | Progress Note ---
Subjective Date of service: 01/20/19 Principal diagnosis: CVA Interval history: 68-year-old female who presented with progressive right-sided weakness over a period of 2 weeks. After symptoms had not improved in that. At time she decided to seek assistance at the ER. She was admitted for presumptive CVA, CT of the head showed bilateral basal ganglia age indeterminate infarcts. Later an MRI was obtained which showed chronic small vessel disease and multiple lacunar infarcts but no findings of an acute CVA (however a left MCA CVA was mentioned in discharge paperwork, perhaps they were able to see something on imaging that the radiologist missed and that I cannot see with just the available report). She does not seek medical treatment on a regular basis and has untreated type 2 diabetes, A1c is 13.3. She was also found to be anemic but does not appear to have been treated for iron deficiency. We will reorder an anemia workup and treat appropriately. She was seen by therapy and determined to be a good candidate for acute inpatient rehabilitation. Patient also states that she does not have part B for her Medicare and does not see an physician on the outside. We'll need to have social work speak with her and help her with some programs to get her better coverage if she will need to have outpatient follow-up going forward with the stroke and the poorly controlled diabetes. Patient is participating in therapy and making reasonable progress. Taking rest breaks as needed. -BM. Noted the patient is having coughing during meals, modified barium swallow today. Blood pressure improved on low-dose lisinopril, trending towards slightly lower side currently. May need to deep decreased dose if she continues to trend down. Denies pain, palpitations, dyspnea, cough, N/V, or joint pain. GLU improved. Anemia stable, monitor Hgb. Discussed with patient All records, vitals, labs and medications were reviewed. No other issues per patient, nursing or therapy. Objective - Exam Narrative Exam: MUSCULOSKELETAL SPECIALTY EXAM CONSTITUTIONAL: Well developed, well nourished, appropriately groomed. RIGHT hand dominant. RESPIRATORY: Clear to auscultation bilaterally, no increased work of breathing CARDIOVASCULAR: Regular Rate/ Rhythm, no swelling, edema or tenderness in BUE or BLE. All ext remities warm. GI: + bowel sounds, soft, NTTP, nondistended. INTEGUMENTARY: Normal, no lesion, rash, masses or bruising noted in extremities. MUSCULOSKELETAL: BUE and BLE normal without defect, crepitus, subluxation, effusion, arthritic changes or TTP. R 2/5 UE, weaker today, 3/5 LE L 5/5 ROM decreased on right Tone increased on RUE, normal otherwise NEURO: CN VII : Right facial droop CN XI : Decreased shoulder shrug on right, normal on left and head rotation Sensation intact in all extremities with extinction on right. No tremor noted in 4 extremities. Naming and repetition intact. Follows 2 step commands. Aphasia not appreciated Dysarthria not appreciated Dysphagia not appreciated Neglect not appreciated POSTURE and GAIT: Sitting posture good. Balance appears reasonable. Gait deferred until seen with therapy. PSYCH: Alert, oriented x3, affect appears flat. Insight appears intact. - Allied health notes Allied health notes reviewed: nursing, PT, ST, OT FIMS assessment as documented by PT/OT/ST: Social interaction/Memory/Problem solving Social Interaction FIM Score 6. Mod. [place] (Mostly appropriate. May need meds. No supv.) Memory FIM Score 7. Complete [place] (Remembers people and routines.) Problem Solving FIM Score 6. Mod. [place] (Mild difficulty or needs more time w/ complex.) Transfers Mode of Locomotion: Wheelchair Bed/Chair/Wheelchair Transfers 3. Moderate Assistance (Patient = 50% or more. FIM Score Some lifting.) Locomotion- walk/wheelchair Most Frequent Mode of Wheelchair Locomotion: Ambulation Distance 50 Walking FIM Score 3. Moderate Assistance (Patient=50% or more. Lifting. Minimum 150 ft.) Wheelchair Propulsion Distance 75 Wheelchair FIM Score 4. Minimal Assistance (Patient = 75% or more. Minimum of 150 ft.) Eating Eating FIM Score 4. Minimal Assistance (Patient = 75% or more) - Labs CBC & Chem 7: 01/20/19 07:04 01/20/19 07:04 Labs: Laboratory Results - last 72 hr 01/17/19 01/17/19 01/17/19 11:45 16:23 19:36 WBC RBC Hgb Hct MCV MCH MCHC RDW Plt Count Sodium Potassium Chloride Carbon Dioxide Anion Gap BUN Creatinine Estimated GFR BUN/Creatinine Ratio Glucose POC Glucose 216 H 137 H 176 H Calcium 01/18/19 01/18/19 01/18/19 08:14 12:15 12:45 WBC 6.0 RBC 4.85 Hgb 9.2 L Hct 30.9 MCV 64 L MCH 19 L MCHC 30 RDW 19.1 H Plt Count 288 Sodium Potassium Chloride Carbon Dioxide Anion Gap BUN Creatinine Estimated GFR BUN/Creatinine Ratio Glucose POC Glucose 146 H 246 H Calcium 01/18/19 01/18/19 01/18/19 12:45 16:14 21:09 WBC RBC Hgb Hct MCV MCH MCHC RDW Plt Count Sodium 136 L Potassium 4.0 Chloride 98.7 Carbon Dioxide 22 Anion Gap 19 BUN 14 Creatinine 0.9 Estimated GFR > 60 BUN/Creatinine Ratio 16 Glucose 192 H POC Glucose 135 H 185 H Calcium 9.4 01/19/19 01/19/19 01/19/19 07:25 11:50 16:42 WBC RBC Hgb Hct MCV MCH MCHC RDW Plt Count Sodium Potassium Chloride Carbon Dioxide Anion Gap BUN Creatinine Estimated GFR BUN/Creatinine Ratio Glucose POC Glucose 160 H 187 H 171 H Calcium 01/19/19 01/20/19 01/20/19 21:27 07:04 07:04 WBC 5.2 RBC 4.57 Hgb 8.9 L Hct 29.4 L MCV 64 L MCH 19 L MCHC 30 RDW 19.0 H Plt Count 262 Sodium 140 Potassium 4.0 Chloride 104.2 Carbon Dioxide 21 L Anion Gap 19 BUN 15 Creatinine 0.8 Estimated GFR > 60 BUN/Creatinine Ratio 19 Glucose 105 H POC Glucose 101 Calcium 9.1 01/20/19 07:34 WBC RBC Hgb Hct MCV MCH MCHC RDW Plt Count Sodium Potassium Chloride Carbon Dioxide Anion Gap BUN Creatinine Estimated GFR BUN/Creatinine Ratio Glucose POC Glucose 109 H Calcium Assessment and Plan CVA: Continue secondary stroke prevention. Discussed prognosis and recovery time frame with patient. Explained secondary stroke prevention. Discussed access to outpatient healthcare as well as her need to discontinue tobacco use. Diabetes, poorly controlled: Continue medications and adjust as needed for improved glycemic control. A1c greater than 13 at outside hospital. We'll need to follow-up with a new PCP and also will need diabetic teaching. Adjust glimepiride Constipation: Start bowel medications. Will use suppository tonight as it's been a week since she's had a bowel movement. Anemia: Microcytic and iron deficient at outside hospital however treatment was not started. Replace Fe and VitC Hypertension: Start lisinopril and adjust for normotension Hypotensive episode -resolved after IVF, monitor Possible dysphagia: MAID SUPERVISOR evaluation, modified barium swallow Z73.6 ADL dysfunction: OT will work on improving ability to perform ADLs (including assistive devices) to increase independence and decrease caregiver burden and improve functional transfers and mobility training. R26.2 Difficulty walking: PT will work on gait training and proper use of assistive devices and advance as appropriate to use of stairs and outside ambulation on uneven surfaces. R26.81 Unsteadiness on feet: PT will work on improving static and dynamic sitting and standing balance as well as proper use of assistive devices to decrease risk of falls. R26.89 Abnormality of gait: PT will work to improve safety and efficiency of gait through neuromotor training and gait training along with instruction on proper use of assistive devices. M62.81 Muscle weakness: PT & OT will work on strengthening exercises to improve functional strength including mixture of closed and open kinetic chain exercises. R53.81 Debility: PT & OT will work on improving overall functional status to improve participation with ADLs, mobility and social involvement. R53.83 Fatigue: PT & OT will work on improving endurance through aerobic exercises and therapeutic activity while monitoring patients tolerance for activity and vital signs as needed. DVT ppx: Lovenox Pain: Continue physical modalities in therapy and pain medications as needed to achieve functional pain control. Sleep: Monitor and address as needed. Bowel: Monitor and address as needed. Appetite: Monitor and address as needed. Discharge planning: Pending therapy progress and care plan meeting. Will continue discussion with therapy team, SW, patient and family. Restrictions/ Precautions: Falls, stroke WB status: FWB Functional Hx: ADLs: Independent Cognition: Independent Mobility: No AD Barriers to Discharge: Decreased mobility and ability to perform self care, balance deficits, weakness Estimated Length of Stay: 1421 days Discharge Destination: Home with family
[2019-01-20] MEDS: INSULIN LISPRO 100 UNIT/ML SUB-Q SCH ×4 (07:59→22:02)
[2019-01-20] MEDS: metFORMIN 500 MG TAB PO SCH ×2 (08:25→17:03)
[2019-01-20] MEDS: ENOXAPARIN 40 MG/0.4 ML INJ SUB-Q SCH (08:25)
[2019-01-20] MEDS: DOCUSATE SODIUM 100 MG CAP PO SCH ×2 (08:25→22:00)
[2019-01-20] MEDS: ASCORBIC ACID 500 MG TAB PO SCH ×2 (08:26→22:00)
[2019-01-20] MEDS: GLIMEPIRIDE 2 MG TAB PO SCH (08:26)
[2019-01-20] MEDS: FERROUS SULFATE 325 MG TAB PO SCH ×2 (08:26→22:00)
[2019-01-20] MEDS: ASPIRIN EC 325 MG TAB PO SCH (08:26)
[2019-01-20] MEDS: LISINOPRIL 10 MG TAB PO SCH (08:31)
--- NOTE | 2019-01-20 10:42 | Fluoroscopy Report ---
Modified barium swallow Indication: dysphagia Technique: Swallowing was evaluated in the lateral position under direct fluoroscopy. Findings: The patient was evaluated with puree, mixed, solid, and thin consistencies. There was early spill and lingual pumping with all consistencies. No aspiration or penetration. Chin tuck and head tilt maneuvers did not improve these findings. Impression: Mildly abnormal exam as above. Fluoroscopic time: 2.7 minutes Number of fluoroscopic images: 1 Signer Name: Brandon Spear MD Signed: 01/20/2019 10:37 AM Workstation Name: [id number]
[2019-01-21] MEDS: INSULIN LISPRO 100 UNIT/ML SUB-Q SCH ×3 (07:30→17:23)
--- NOTE | 2019-01-21 09:45 | Progress Note ---
Subjective Date of service: 01/21/19 Principal diagnosis: CVA Interval history: 68-year-old female who presented with progressive right-sided weakness over a period of 2 weeks. After symptoms had not improved in that. At time she decided to seek assistance at the ER. She was admitted for presumptive CVA, CT of the head showed bilateral basal ganglia age indeterminate infarcts. Later an MRI was obtained which showed chronic small vessel disease and multiple lacunar infarcts but no findings of an acute CVA (however a left MCA CVA was mentioned in discharge paperwork, perhaps they were able to see something on imaging that the radiologist missed and that I cannot see with just the available report). She does not seek medical treatment on a regular basis and has untreated type 2 diabetes, A1c is 13.3. She was also found to be anemic but does not appear to have been treated for iron deficiency. We will reorder an anemia workup and treat appropriately. She was seen by therapy and determined to be a good candidate for acute inpatient rehabilitation. Patient also states that she does not have part B for her Medicare and does not see an physician on the outside. We'll need to have social work speak with her and help her with some programs to get her better coverage if she will need to have outpatient follow-up going forward with the stroke and the poorly controlled diabetes. Patient is participating in therapy and making reasonable progress. Taking rest breaks as needed. -BM. Noted the patient is having coughing during meals, modified barium swallow today. Blood pressure improved on low-dose lisinopril, trending towards slightly lower side currently. May need to deep decreased dose if she continues to trend down. Denies pain, palpitations, dyspnea, cough, N/V, or joint pain. GLU improved. Anemia stable, monitor Hgb. Discussed with patient. Modified barium swallow reviewed. Patient did have dysphagia with all CONSISTENCIES without evidence of aspiration. Strategies were discussed and started with patient to improve swallowing. Retained on regular consistency with thin liquids utilizing swallowing strategies. Discussed in team conference. Making slow progress. Right sided strength has decreased slightly from initial exam. Able to ambulate with AFO and brace but needs help advancing LE. Will continue to work to improve independence and st rength. All records, vitals, labs and medications were reviewed. No other issues per patient, nursing or therapy. Objective - Exam Narrative Exam: MUSCULOSKELETAL SPECIALTY EXAM CONSTITUTIONAL: Well developed, well nourished, appropriately groomed. RIGHT hand dominant. RESPIRATORY: Clear to auscultation bilaterally, no increased work of breathing CARDIOVASCULAR: Regular Rate/ Rhythm, no swelling, edema or tenderness in BUE or BLE. All extremities warm. GI: + bowel sounds, soft, NTTP, nondistended. INTEGUMENTARY: Normal, no lesion, rash, masses or bruising noted in extremities. MUSCULOSKELETAL: BUE and BLE normal without defect, crepitus, subluxation, effusion, arthritic changes or TTP. R 2/5 UE, 2/5 LE weaker than on admission L 5/5 ROM decreased on right Tone increased on RUE, normal otherwise NEURO: CN VII : Right facial droop CN XI : Decreased shoulder shrug on right, normal on left and head rotation Sensation intact in all extremities with extinction on right. No tremor noted in 4 extremities. Naming and repetition intact. Follows 2 step commands. Aphasia not appreciated Dysarthria not appreciated Dysphagia not appreciated Neglect not appreciated POSTURE and GAIT: Sitting posture good. Balance appears reasonable. Gait slow, with AFO, brace and manual assist to advance LE. PSYCH: Alert, oriented x3, affect appears flat. Insight appears intact. - Constitutional Vitals: Vital Signs - 12hr 01/21/19 07:16 Temperature 37.0 C Pulse Rate 80 Respiratory 18 Rate Blood Pressure 98/45 O2 Sat by Pulse 97 Oximetry - Allied health notes Allied health notes reviewed: nursing, PT, ST, OT FIMS assessment as documented by PT/OT/ST: Social interaction/Memory/Problem solving Social Interaction FIM Score 4. Minimal Assistance (Interacts appropriately 75-90%.) Memory FIM Score 5. Supervision (Needs cueing <10%, stressful/ unfamiliar situations.) Problem Solving FIM Score 5. Supervision (Needs cueing <10% to solve routine problems.) Transfers Mode of Locomotion: Wheelchair Bed/Chair/Wheelchair Transfers 3. Moderate Assistance (Patient = 50% or more. FIM Score Some lifting.) Locomotion- walk/wheelchair Most Frequent Mode of Wheelchair Locomotion: Ambulation Distance 50 Walking FIM Score 3. Moderate Assistance (Patient=50% or more. Lifting. Minimum 150 ft.) Wheelchair Propulsion Distance 75 Wheelchair FIM Score 4. Minimal Assistance (Patient = 75% or more. Minimum of 150 ft.) Eating Eating FIM Score 4. Minimal Assistance (Patient = 75% or more) Dressing-lower body Patient retrieves clothing No items: Lower Body Dressing FIM Score 2. Maximal Assistance (Patient = 25% or more) - Labs CBC & Chem 7: 01/20/19 07:04 01/20/19 07:04 Labs: Laboratory Results - last 72 hr 01/18/19 01/18/19 01/18/19 12:15 12:45 12:45 WBC 6.0 RBC 4.85 Hgb 9.2 L Hct 30.9 MCV 64 L MCH 19 L MCHC 30 RDW 19.1 H Plt Count 288 Sodium 136 L Potassium 4.0 Chloride 98.7 Carbon Dioxide 22 Anion Gap 19 BUN 14 Creatinine 0.9 Estimated GFR > 60 BUN/Creatinine Ratio 16 Glucose 192 H POC Glucose 246 H Calcium 9.4 01/18/19 01/18/19 01/19/19 16:14 21:09 07:25 WBC RBC Hgb Hct MCV MCH MCHC RDW Plt Count Sodium Potassium Chloride Carbon Dioxide Anion Gap BUN Creatinine Estimated GFR BUN/Creatinine Ratio Glucose POC Glucose 135 H 185 H 160 H Calcium 01/19/19 01/19/19 01/19/19 11:50 16:42 21:27 WBC RBC Hgb Hct MCV MCH MCHC RDW Plt Count Sodium Potassium Chloride Carbon Dioxide Anion Gap BUN Creatinine Estimated GFR BUN/Creatinine Ratio Glucose POC Glucose 187 H 171 H 101 Calcium 01/20/19 01/20/19 01/20/19 07:04 07:04 07:34 WBC 5.2 RBC 4.57 Hgb 8.9 L Hct 29.4 L MCV 64 L MCH 19 L MCHC 30 RDW 19.0 H Plt Count 262 Sodium 140 Potassium 4.0 Chloride 104.2 Carbon Dioxide 21 L Anion Gap 19 BUN 15 Creatinine 0.8 Estimated GFR > 60 BUN/Creatinine Ratio 19 Glucose 105 H POC Glucose 109 H Calcium 9.1 01/20/19 01/20/19 01/20/19 11:43 16:24 20:18 WBC RBC Hgb Hct MCV MCH MCHC RDW Plt Count Sodium Potassium Chloride Carbon Dioxide Anion Gap BUN Creatinine Estimated GFR BUN/Creatinine Ratio Glucose POC Glucose 174 H 163 H 144 H Calcium 01/21/19 07:26 WBC RBC Hgb Hct MCV MCH MCHC RDW Plt Count Sodium Potassium Chloride Carbon Dioxide Anion Gap BUN Creatinine Estimated GFR BUN/Creatinine Ratio Glucose POC Glucose 149 H Calcium Assessment and Plan CVA: Continue secondary stroke prevention. Discussed prognosis and recovery time frame with patient. Explained secondary stroke prevention. Discussed access to outpatient healthcare as well as her need to discontinue tobacco use. Diabetes, poorly controlled: Continue medications and adjust as needed for improved glycemic control. A1c greater than 13 at outside hospital. We'll need to follow-up with a new PCP and also will need diabetic teaching. Adjust glimepiride Constipation: Start bowel medications. Will use suppository tonight as it's been a week since she's had a bowel movement. Anemia: Microcytic and iron deficient at outside hospital however treatment was not started. Replace Fe and VitC Hypertension: Start lisinopril and adjust for normotension Hypotensive episode -resolved after IVF, monitor Possible dysphagia: SOCIAL WORK MANAGER evaluation, modified barium swallow Z73.6 ADL dysfunction: OT will work on improving ability to perform ADLs (including assistive devices) to increase independence and decrease caregiver burden and improve functional transfers and mobility training. R26.2 Difficulty walking: PT will work on gait training and proper use of assistive devices and advance as appropriate to use of stairs and outside ambulation on uneven surfaces. R26.81 Unsteadiness on feet: PT will work on improving static and dynamic sitting and standing balance as well as proper use of assistive devices to decrease risk of falls. R26.89 Abnormality of gait: PT will work to improve safety and efficiency of gait through neuromotor training and gait training along with instruction on proper use of assistive devices. M62.81 Muscle weakness: PT & OT will work on strengthening exercises to improve functional strength including mixture of closed and open kinetic chain exercises. R53.81 Debility: PT & OT will work on improving overall functional status to improve participation with ADLs, mobility and social involvement. R53.83 Fatigue: PT & OT will work on improving endurance through aerobic exercises and therapeutic activity while monitoring patients tolerance for activity and vital signs as needed. DVT ppx: Lovenox Pain: Continue physical modalities in therapy and pain medications as needed to achieve functional pain control. Sleep: Monitor and address as needed. Bowel: Monitor and address as needed. Appetite: Monitor and address as needed. Discharge planning: Pending therapy progress and care plan meeting. Will continue discussion with therapy team, SW, patient and family. Restrictions/ Precautions: Falls, stroke WB status: FWB Functional Hx: ADLs: Independent Cognition: Independent Mobility: No AD Barriers to Discharge: Decreased mobility and ability to perform self care, balance deficits, weakness Estimated Length of Stay: 1421 days Discharge Destination: Home with family
[2019-01-21] MEDS: GLIMEPIRIDE 2 MG TAB PO SCH (09:59)
[2019-01-21] MEDS: ENOXAPARIN 40 MG/0.4 ML INJ SUB-Q SCH (11:00)
[2019-01-21] MEDS: ASPIRIN EC 325 MG TAB PO SCH (11:58)
[2019-01-21] MEDS: FERROUS SULFATE 325 MG TAB PO SCH ×2 (11:58→22:29)
[2019-01-21] MEDS: metFORMIN 500 MG TAB PO SCH ×2 (11:58→18:24)
[2019-01-21] MEDS: ASCORBIC ACID 500 MG TAB PO SCH ×2 (11:58→22:29)
[2019-01-21] MEDS: DOCUSATE SODIUM 100 MG CAP PO SCH ×2 (11:59→22:29)
[2019-01-21] MEDS: LISINOPRIL 10 MG TAB PO SCH (12:08)
[2019-01-22] MEDS: INSULIN LISPRO 100 UNIT/ML SUB-Q SCH ×4 (08:12→21:56)
[2019-01-22] MEDS: LISINOPRIL 10 MG TAB PO SCH (08:33)
[2019-01-22] MEDS: ASPIRIN EC 325 MG TAB PO SCH (08:35)
[2019-01-22] MEDS: metFORMIN 500 MG TAB PO SCH ×2 (08:35→17:18)
[2019-01-22] MEDS: ASCORBIC ACID 500 MG TAB PO SCH ×2 (08:35→21:55)
[2019-01-22] MEDS: DOCUSATE SODIUM 100 MG CAP PO SCH ×2 (08:35→21:55)
[2019-01-22] MEDS: FERROUS SULFATE 325 MG TAB PO SCH ×2 (08:35→21:55)
[2019-01-22] MEDS: ENOXAPARIN 40 MG/0.4 ML INJ SUB-Q SCH (08:36)
[2019-01-22] MEDS: GLIMEPIRIDE 2 MG TAB PO SCH (08:36)
--- NOTE | 2019-01-22 08:45 | Progress Note ---
Subjective Date of service: 01/22/19 Principal diagnosis: CVA Interval history: 68-year-old female who presented with progressive right-sided weakness over a period of 2 weeks. After symptoms had not improved in that. At time she decided to seek assistance at the ER. She was admitted for presumptive CVA, CT of the head showed bilateral basal ganglia age indeterminate infarcts. Later an MRI was obtained which showed chronic small vessel disease and multiple lacunar infarcts but no findings of an acute CVA (however a left MCA CVA was mentioned in discharge paperwork, perhaps they were able to see something on imaging that the radiologist missed and that I cannot see with just the available report). She does not seek medical treatment on a regular basis and has untreated type 2 diabetes, A1c is 13.3. She was also found to be anemic but does not appear to have been treated for iron deficiency. We will reorder an anemia workup and treat appropriately. She was seen by therapy and determined to be a good candidate for acute inpatient rehabilitation. Patient also states that she does not have part B for her Medicare and does not see an physician on the outside. We'll need to have social work speak with her and help her with some programs to get her better coverage if she will need to have outpatient follow-up going forward with the stroke and the poorly controlled diabetes. Patient is participating in therapy and making reasonable progress. Taking rest breaks as needed. -BM. Noted to have issue with swallowing pills today with chin tuck strategy, will discuss with GUEST SERVICES REPRESENTATIVE. Denies pain, palpitations, dyspnea, cough, N/V, or joint pain. GLU improved. Anemia stable, monitor Hgb. Discussed with patient. All records, vitals, labs and medications were reviewed. No other issues per patient, nursing or therapy. Objective - Exam Narrative Exam: MUSCULOSKELETAL SPECIALTY EXAM CONSTITUTIONAL: Well developed, well nourished, appropriately groomed. RIGHT hand dominant. RESPIRATORY: Clear to auscultation bilaterally, no increased work of breathing CARDIOVASCULAR: Regular Rate/ Rhythm, no swelling, edema or tenderness in BUE or BLE. All extremities warm. GI: + bowel sounds, soft, NTTP, nondistended. INTEGUMENTARY: Normal, no lesion, rash, masses or bruising noted in extremities. MUSCULOSKELETAL: Slight right shoulder sublux, otherwise BUE and BLE normal without defect, cre pitus, subluxation, effusion, arthritic changes or TTP. R 2/5 UE, 2/5 LE weaker than on admission L 5/5 ROM decreased on right Tone increased on RUE, normal otherwise NEURO: CN VII : Right facial droop CN XI : Decreased shoulder shrug on right, normal on left and head rotation Sensation intact in all extremities with extinction on right. No tremor noted in 4 extremities. Naming and repetition intact. Follows 2 step commands. Aphasia not appreciated Dysarthria not appreciated Dysphagia not appreciated Neglect not appreciated POSTURE and GAIT: Sitting posture good. Balance appears reasonable. Gait slow, with AFO, brace and manual assist to advance LE. PSYCH: Alert, oriented x3, affect appears flat. Insight appears intact. - Constitutional Vitals: Vital Signs - 12hr 01/21/19 01/22/19 01/22/19 22:00 07:53 08:33 Temperature 36.6 C Pulse Rate 78 78 Respiratory 18 18 Rate Blood Pressure 128/66 128/66 O2 Sat by Pulse 98 Oximetry - Allied health notes Allied health notes reviewed: nursing, PT, ST, OT FIMS assessment as documented by PT/OT/ST: Social interaction/Memory/Problem solving Social Interaction FIM Score 6. Mod. [place] (Mostly appropriate. May need meds. No supv.) Memory FIM Score 7. Complete [place] (Remembers people and routines.) Problem Solving FIM Score 7. Complete [place] (Solves complex problems. Self corrects.) Transfers Mode of Locomotion: Wheelchair Bed/Chair/Wheelchair Transfers 3. Moderate Assistance (Patient = 50% or more. FIM Score Some lifting.) Locomotion- walk/wheelchair Most Frequent Mode of Wheelchair Locomotion: Ambulation Distance 50 Walking FIM Score 3. Moderate Assistance (Patient=50% or more. Lifting. Minimum 150 ft.) Wheelchair Propulsion Distance 75 Wheelchair FIM Score 4. Minimal Assistance (Patient = 75% or more. Minimum of 150 ft.) Eating Eating FIM Score 4. Minimal Assistance (Patient = 75% or more) Dressing-lower body Patient retrieves clothing No items: Lower Body Dressing FIM Score 2. Maximal Assistance (Patient = 25% or more) - Labs CBC & Chem 7: 01/20/19 07:04 01/20/19 07:04 Labs: Laboratory Results - last 72 hr 01/19/19 01/19/19 01/19/19 11:50 16:42 21:27 WBC RBC Hgb Hct MCV MCH MCHC RDW Plt Count Sodium Potassium Chloride Carbon Dioxide Anion Gap BUN Creatinine Estimated GFR BUN/Creatinine Ratio Glucose POC Glucose 187 H 171 H 101 Calcium 01/20/19 01/20/19 01/20/19 07:04 07:04 07:34 WBC 5.2 RBC 4.57 Hgb 8.9 L Hct 29.4 L MCV 64 L MCH 19 L MCHC 30 RDW 19.0 H Plt Count 262 Sodium 140 Potassium 4.0 Chloride 104.2 Carbon Dioxide 21 L Anion Gap 19 BUN 15 Creatinine 0.8 Estimated GFR > 60 BUN/Creatinine Ratio 19 Glucose 105 H POC Glucose 109 H Calcium 9.1 01/20/19 01/20/19 01/20/19 11:43 16:24 20:18 WBC RBC Hgb Hct MCV MCH MCHC RDW Plt Count Sodium Potassium Chloride Carbon Dioxide Anion Gap BUN Creatinine Estimated GFR BUN/Creatinine Ratio Glucose POC Glucose 174 H 163 H 144 H Calcium 01/21/19 01/21/19 01/21/19 07:26 11:39 16:29 WBC RBC Hgb Hct MCV MCH MCHC RDW Plt Count Sodium Potassium Chloride Carbon Dioxide Anion Gap BUN Creatinine Estimated GFR BUN/Creatinine Ratio Glucose POC Glucose 149 H 179 H 119 H Calcium 01/21/19 01/22/19 21:59 08:02 WBC RBC Hgb Hct MCV MCH MCHC RDW Plt Count Sodium Potassium Chloride Carbon Dioxide Anion Gap BUN Creatinine Estimated GFR BUN/Creatinine Ratio Glucose POC Glucose 148 H 96 Calcium Assessment and Plan CVA: Continue secondary stroke prevention. Discussed prognosis and recovery time frame with patient. Explained secondary stroke prevention. Discussed access to outpatient healthcare as well as her need to discontinue tobacco use. Diabetes, poorly controlled: Continue medications and adjust as needed for improved glycemic control. A1c greater than 13 at outside hospital. We'll need to follow-up with a new PCP and also will need diabetic teaching. Adjust glimepiride Constipation: Start bowel medications. Will use suppository tonight as it's been a week since she's had a bowel movement. Anemia: Microcytic and iron deficient at outside hospital however treatment was not started. Replace Fe and VitC Hypertension: Start lisinopril and adjust for normotension Hypotensive episode -resolved after IVF, monitor Pharyngeal phase dysphagia: GUEST SERVICES REPRESENTATIVE evaluation, modified barium swallow - continue with strategies Z73.6 ADL dysfunction: OT will work on improving ability to perform ADLs (including assistive devices) to increase independence and decrease caregiver burden and improve functional transfers and mobility training. R26.2 Difficulty walking: PT will work on gait training and proper use of assistive devices and advance as appropriate to use of stairs and outside ambulation on uneven surfaces. R26.81 Unsteadiness on feet: PT will work on improving static and dynamic sitting and standing balance as well as proper use of assistive devices to decrease risk of falls. R26.89 Abnormality of gait: PT will work to improve safety and efficiency of gait through neuromotor training and gait training along with instruction on proper use of assistive devices. M62.81 Muscle weakness: PT & OT will work on strengthening exercises to improve functional strength including mixture of closed and open kinetic chain exercises. R53.81 Debility: PT & OT will work on improving overall functional status to improve participation with ADLs, mobility and social involvement. R53.83 Fatigue: PT & OT will work on improving endurance through aerobic ex ercises and therapeutic activity while monitoring patients tolerance for activity and vital signs as needed. DVT ppx: Lovenox Pain: Continue physical modalities in therapy and pain medications as needed to achieve functional pain control. Sleep: Monitor and address as needed. Bowel: Monitor and address as needed. Appetite: Monitor and address as needed. Discharge planning: Pending therapy progress and care plan meeting. Will continue discussion with therapy team, SW, patient and family. Restrictions/ Precautions: Falls, stroke WB status: FWB Functional Hx: ADLs: Independent Cognition: Independent Mobility: No AD Barriers to Discharge: Decreased mobility and ability to perform self care, balance deficits, weakness Estimated Length of Stay: 1421 days Discharge Destination: Home with family
[2019-01-22 10:44] LABS: BUN/Creatinine Ratio 21; Blood Urea Nitrogen 17 mg/dL (7-17); Calcium 9.2 mg/dL (8.4-10.2); Hemolysis Index 4
[2019-01-22 10:46] LABS: Hematocrit 27.6 % (30.3-42.9); Hemoglobin 8.4 gm/dl (10.1-14.3); Mean Corpuscular HGB Conc 30 % (30-34); Platelet Count 264 K/mm3 (140-440); Red Blood Count 4.34 M/mm3 (3.65-5.03); Red Cell Distribution Width 19.1 % (13.2-15.2)
[2019-01-22 10:47] LABS: Mean Corpuscular Volume 64 fl (79-97)
[2019-01-23] MEDS: ENOXAPARIN 40 MG/0.4 ML INJ SUB-Q SCH (09:20)
[2019-01-23] MEDS: metFORMIN 500 MG TAB PO SCH ×2 (09:21→17:14)
[2019-01-23] MEDS: GLIMEPIRIDE 2 MG TAB PO SCH (09:21)
[2019-01-23] MEDS: DOCUSATE SODIUM 100 MG CAP PO SCH ×2 (09:21→21:28)
[2019-01-23] MEDS: LISINOPRIL 10 MG TAB PO SCH (09:21)
[2019-01-23] MEDS: ASCORBIC ACID 500 MG TAB PO SCH ×2 (09:21→21:28)
[2019-01-23] MEDS: INSULIN LISPRO 100 UNIT/ML SUB-Q SCH ×4 (09:22→21:29)
[2019-01-23] MEDS: FERROUS SULFATE 325 MG TAB PO SCH ×2 (09:22→21:28)
[2019-01-23] MEDS: ASPIRIN EC 325 MG TAB PO SCH (09:22)
[2019-01-24] MEDS: ASPIRIN EC 325 MG TAB PO SCH (08:34)
[2019-01-24] MEDS: ASCORBIC ACID 500 MG TAB PO SCH ×2 (08:34→21:38)
[2019-01-24] MEDS: GLIMEPIRIDE 2 MG TAB PO SCH (08:34)
[2019-01-24] MEDS: metFORMIN 500 MG TAB PO SCH ×2 (08:34→16:51)
[2019-01-24] MEDS: LISINOPRIL 10 MG TAB PO SCH (08:34)
[2019-01-24] MEDS: ENOXAPARIN 40 MG/0.4 ML INJ SUB-Q SCH (08:34)
[2019-01-24] MEDS: DOCUSATE SODIUM 100 MG CAP PO SCH ×2 (08:35→21:38)
[2019-01-24] MEDS: INSULIN LISPRO 100 UNIT/ML SUB-Q SCH ×4 (08:36→21:39)
[2019-01-24] MEDS: FERROUS SULFATE 325 MG TAB PO SCH ×2 (08:36→21:38)
[2019-01-25] MEDS: INSULIN LISPRO 100 UNIT/ML SUB-Q SCH ×4 (08:37→21:33)
--- NOTE | 2019-01-25 09:40 | Progress Note ---
Subjective Date of service: 01/25/19 Principal diagnosis: CVA Interval history: 68-year-old female who presented with progressive right-sided weakness over a period of 2 weeks. After symptoms had not improved in that. At time she decided to seek assistance at the ER. She was admitted for presumptive CVA, CT of the head showed bilateral basal ganglia age indeterminate infarcts. Later an MRI was obtained which showed chronic small vessel disease and multiple lacunar infarcts but no findings of an acute CVA (however a left MCA CVA was mentioned in discharge paperwork, perhaps they were able to see something on imaging that the radiologist missed and that I cannot see with just the available report). She does not seek medical treatment on a regular basis and has untreated type 2 diabetes, A1c is 13.3. She was also found to be anemic but does not appear to have been treated for iron deficiency. We will reorder an anemia workup and treat appropriately. She was seen by therapy and determined to be a good candidate for acute inpatient rehabilitation. Patient also states that she does not have part B for her Medicare and does not see an physician on the outside. We'll need to have social work speak with her and help her with some programs to get her better coverage if she will need to have outpatient follow-up going forward with the stroke and the poorly controlled diabetes. Patient is participating in therapy and making reasonable progress. Taking rest breaks as needed. +BM. Denies pain, palpitations, dyspnea, cough, N/V, or joint pain. GLU improved. Discussed with patient. All records, vitals, labs and medications were reviewed. No other issues per p atient, nursing or therapy. Objective - Exam Narrative Exam: MUSCULOSKELETAL SPECIALTY EXAM CONSTITUTIONAL: Well developed, well nourished, appropriately groomed. RIGHT hand dominant. RESPIRATORY: Clear to auscultation bilaterally, no increased work of breathing CARDIOVASCULAR: Regular Rate/ Rhythm, no swelling, edema or tenderness in BUE or BLE. All extremities warm. GI: + bowel sounds, soft, NTTP, nondistended. INTEGUMENTARY: Normal, no lesion, rash, masses or bruising noted in extremities. MUSCULOSKELETAL: Slight right shoulder sublux, otherwise BUE and BLE normal without defect, crepitus, subluxation, effusion, arthritic changes or TTP. R 2/5 UE, 2/5 LE weaker than on admission L 5/5 ROM decreased on right Tone increased on RUE, normal otherwise NEURO: CN VII : Right facial droop CN XI : Decreased shoulder shrug on right, normal on left and head rotation Sensation intact in all extremities with extinction on right. No tremor noted in 4 extremities. Naming and repetition intact. Follows 2 step commands. Aphasia not appreciated Dysarthria not appreciated Dysphagia not appreciated Neglect not appreciated POSTURE and GAIT: Sitting posture good. Balance appears reasonable. Gait slow, with AFO, brace and manual assist to advance LE. PSYCH: Alert, oriented x3, affect appears flat. Insight appears intact. - Constitutional Vitals: Vital Signs - 12hr 01/25/19 01/25/19 01/25/19 00:05 04:25 04:27 Temperature 37.1 C 36.9 C Pulse Rate 94 H 78 79 Respiratory 18 18 Rate Blood Pressure Blood Pressure 158/56 117/51 [Left] O2 Sat by Pulse 97 100 100 Oximetry 01/25/19 07:19 Temperature 36.8 C Pulse Rate 79 Respiratory 18 Rate Blood Pressure 124/63 Blood Pressure [Left] O2 Sat by Pulse 100 Oximetry - Allied health notes Allied health notes reviewed: nursing, PT, ST, OT FIMS assessment as documented by PT/OT/ST: Social interaction/Memory/Problem solving Social Interaction FIM Score 7. Complete [place] (Interacts appropriately. Controls temper.) Memory FIM Score 7. Complete [place] (Remembers people and routines.) Problem Solving FIM Score 7. Complete [place] (Solves complex problems. Self corrects.) Transfers Mode of Locomotion: Wheelchair Bed/Chair/Wheelchair Transfers 4. Minimal Assistance (Patient = 75% or more. FIM Score Needs touching.) Locomotion- walk/wheelchair Most Frequent Mode of Wheelchair Locomotion: Ambulation Distance 50 Walking FIM Score 3. Moderate Assistance (Patient=50% or more. Lifting. Minimum 150 ft.) Wheelchair Propulsion Distance 75 Wheelchair FIM Score 5. Supervision (Minimum 150 ft. supv./cues or 50 ft. independently.) Eating Eating FIM Score 4. Minimal Assistance (Patient = 75% or more) Dressing-Upper body Patient retrieves clothing No items: Patient applies/removes UE No prosthesis or orthosis: Upper Body Dressing FIM Score 3. Moderate Assistance (Patient = 50% or more) Dressing-lower body Patient retrieves clothing No items: Patient applies/removes LE No prosthesis or orthosis: Lower Body Dressing FIM Score 3. Moderate Assistance (Patient = 50% or more) - Labs CBC & Chem 7: 01/22/19 09:51 01/22/19 09:51 Labs: Laboratory Results - last 72 hr 01/22/19 01/22/19 01/22/19 09:51 09:51 11:47 WBC 6.0 RBC 4.34 Hgb 8.4 L Hct 27.6 L MCV 64 L MCH 19 L MCHC 30 RDW 19.1 H Plt Count 264 Sodium 136 L Potassium 4.0 Chloride 100.4 Carbon Dioxide 22 Anion Gap 18 BUN 17 Creatinine 0.8 Estimated GFR > 60 BUN/Creatinine Ratio 21 Glucose 126 H POC Glucose 145 H Calcium 9.2 01/22/19 01/22/19 01/23/19 16:18 21:57 07:43 WBC RBC Hgb Hct MCV MCH MCHC RDW Plt Count Sodium Potassium Chloride Carbon Dioxide Anion Gap BUN Creatinine Estimated GFR BUN/Creatinine Ratio Glucose POC Glucose 141 H 135 H 124 H Calcium 01/23/19 01/23/19 01/23/19 12:06 16:31 21:24 WBC RBC Hgb Hct MCV MCH MCHC RDW Plt Count Sodium Potassium Chloride Carbon Dioxide Anion Gap BUN Creatinine Estimated GFR BUN/Creatinine Ratio Glucose POC Glucose 172 H 111 H 103 Calcium 01/24/19 01/24/19 01/24/19 07:49 11:56 16:31 WBC RBC Hgb Hct MCV MCH MCHC RDW Plt Count Sodium Potassium Chloride Carbon Dioxide Anion Gap BUN Creatinine Estimated GFR BUN/Creatinine Ratio Glucose POC Glucose 108 H 125 H 92 Calcium 01/24/19 01/25/19 21:14 07:29 WBC RBC Hgb Hct MCV MCH MCHC RDW Plt Count Sodium Potassium Chloride Carbon Dioxide Anion Gap BUN Creatinine Estimated GFR BUN/Creatinine Ratio Glucose POC Glucose 116 H 88 Calcium Assessment and Plan CVA: Continue secondary stroke prevention. Discussed prognosis and recovery time frame with patient. Explained secondary stroke prevention. Discussed access to outpatient healthcare as well as her need to discontinue tobacco use. Diabetes, poorly controlled: Continue medications and adjust as needed for improved glycemic control. A1c greater than 13 at outside hospital. We'll need to follow-up with a new PCP and also will need diabetic teaching. Adjust glimepiride Constipation: Start bowel medications. Will use suppository tonight as it's been a week since she's had a bowel movement. Anemia: Microcytic and iron deficient at outside hospital however treatment was not started. Replace Fe and VitC Hypertension: Start lisinopril and adjust for normotension Hypotensive episode -resolved after IVF, monitor Pharyngeal phase dysphagia: [employer] evaluation, modified barium swallow - continue with strategies Z73.6 ADL dysfunction: OT will work on improving ability to perform ADLs (including assistive devices) to increase independence and decrease caregiver burden and improve functional transfers and mobility training. R26.2 Difficulty walking: PT will work on gait training and proper use of assi stive devices and advance as appropriate to use of stairs and outside ambulation on uneven surfaces. R26.81 Unsteadiness on feet: PT will work on improving static and dynamic sitting and standing balance as well as proper use of assistive devices to decrease risk of falls. R26.89 Abnormality of gait: PT will work to improve safety and efficiency of gait through neuromotor training and gait training along with instruction on proper use of assistive devices. M62.81 Muscle weakness: PT & OT will work on strengthening exercises to improve functional strength including mixture of closed and open kinetic chain exercises. R53.81 Debility: PT & OT will work on improving overall functional status to improve participation with ADLs, mobility and social involvement. R53.83 Fatigue: PT & OT will work on improving endurance through aerobic exercises and therapeutic activity while monitoring patients tolerance for activity and vital signs as needed. DVT ppx: Lovenox Pain: Continue physical modalities in therapy and pain medications as needed to achieve functional pain control. Sleep: Monitor and address as needed. Bowel: Monitor and address as needed. Appetite: Monitor and address as needed. Discharge planning: Pending therapy progress and care plan meeting. Will continue discussion with therapy team, SW, patient and family. Restrictions/ Precautions: Falls, stroke WB status: FWB Functional Hx: ADLs: Independent Cognition: Independent Mobility: No AD Barriers to Discharge: Decreased mobility and ability to perform self care, balance deficits, weakness Estimated Length of Stay: 1421 days Discharge Destination: Home with family
[2019-01-25] MEDS: FERROUS SULFATE 325 MG TAB PO SCH ×2 (11:28→21:27)
[2019-01-25] MEDS: ASPIRIN EC 325 MG TAB PO SCH (11:29)
[2019-01-25] MEDS: DOCUSATE SODIUM 100 MG CAP PO SCH ×2 (11:30→21:27)
[2019-01-25] MEDS: metFORMIN 500 MG TAB PO SCH ×2 (11:30→18:34)
[2019-01-25] MEDS: GLIMEPIRIDE 2 MG TAB PO SCH (11:30)
[2019-01-25] MEDS: ASCORBIC ACID 500 MG TAB PO SCH ×2 (11:34→21:27)
[2019-01-25] MEDS: LISINOPRIL 10 MG TAB PO SCH ×2 (11:34→12:59)
[2019-01-25] MEDS: ENOXAPARIN 40 MG/0.4 ML INJ SUB-Q SCH (11:58)
[2019-01-26] MEDS: INSULIN LISPRO 100 UNIT/ML SUB-Q SCH ×3 (07:46→22:12)
[2019-01-26] MEDS: LISINOPRIL 10 MG TAB PO SCH (07:49)
[2019-01-26] MEDS: ASPIRIN EC 325 MG TAB PO SCH (07:49)
[2019-01-26] MEDS: metFORMIN 500 MG TAB PO SCH ×2 (07:49→17:50)
[2019-01-26] MEDS: GLIMEPIRIDE 2 MG TAB PO SCH (07:49)
[2019-01-26] MEDS: FERROUS SULFATE 325 MG TAB PO SCH ×2 (07:49→21:15)
[2019-01-26] MEDS: DOCUSATE SODIUM 100 MG CAP PO SCH ×2 (07:50→21:15)
[2019-01-26] MEDS: ASCORBIC ACID 500 MG TAB PO SCH ×2 (07:50→21:15)
[2019-01-26] MEDS: ENOXAPARIN 40 MG/0.4 ML INJ SUB-Q SCH (07:50)
[2019-01-26 08:04] LABS: BUN/Creatinine Ratio 19; Blood Urea Nitrogen 17 mg/dL (7-17); Calcium 9.2 mg/dL (8.4-10.2); Hemolysis Index 1
[2019-01-26 08:05] LABS: Hematocrit 25.5 % (30.3-42.9); Hemoglobin 7.6 gm/dl (10.1-14.3); Mean Corpuscular HGB Conc 30 % (30-34); Mean Corpuscular Volume 64 fl (79-97); Platelet Count 288 K/mm3 (140-440); Red Blood Count 3.97 M/mm3 (3.65-5.03); Red Cell Distribution Width 19.5 % (13.2-15.2)
--- NOTE | 2019-01-26 09:59 | Progress Note ---
Subjective Date of service: 01/26/19 Principal diagnosis: CVA Interval history: 68-year-old female who presented with progressive right-sided weakness over a period of 2 weeks. After symptoms had not improved in that. At time she decided to seek assistance at the ER. She was admitted for presumptive CVA, CT of the head showed bilateral basal ganglia age indeterminate infarcts. Later an MRI was obtained which showed chronic small vessel disease and multiple lacunar infarcts but no findings of an acute CVA (however a left MCA CVA was mentioned in discharge paperwork, perhaps they were able to see something on imaging that the radiologist missed and that I cannot see with just the available report). She does not seek medical treatment on a regular basis and has untreated type 2 diabetes, A1c is 13.3. She was also found to be anemic but does not appear to have been treated for iron deficiency. We will reorder an anemia workup and treat appropriately. She was seen by therapy and determined to be a good candidate for acute inpatient rehabilitation. Patient also states that she does not have part B for her Medicare and does not see an physician on the outside. We'll need to have social work speak with her and help her with some programs to get her better coverage if she will need to have outpatient follow-up going forward with the stroke and the poorly controlled diabetes. Patient is participating in therapy and making reasonable progress. Taking rest breaks as needed. +BM. Denies pain, palpitations, dyspnea, cough, N/V, or joint pain. GLU improved. Anemia is getting worse. We will redraw labs tomorrow. Anemia is acute on chronic, also check and stool for fecal occult blood. Discussed with patient. Discussed in team conference. Patient is making progress however return of function on the hemiparetic side is slow. Discussed possibility of needing outside care if she does not have return of function in the next week or so. We'll need to discuss with the family if they feel like they can provide the level of care that she will need if she does not have any further return. Is able to walk with therapy however is needing assistance to advance leg. Transfers are variable at times depending on whether or not her leg is in a brace but she is needing at least mod to max assist. Having issues with swallowing at times even with compensatory strategies. All records, vitals, labs and medications were reviewed. No other issues per patient, nursing or therapy. Objective - Exam Narrative Exam: MUSCULOSKELETAL SPECIALTY EXAM CONSTITUTIONAL: Well developed, well nourished, appropriately groomed. RIGHT hand dominant. RESPIRATORY: Clear to auscultation bilaterally, no increased work of breathing CARDIOVASCULAR: Regular Rate/ Rhythm, no swelling, edema or tenderness in BUE or BLE. All extremities warm. GI: + bowel sounds, soft, NTTP, nondistended. INTEGUMENTARY: Normal, no lesion, rash, masses or bruising noted in extremities. MUSCULOSKELETAL: Slight right shoulder sublux, otherwise BUE and BLE normal without defect, crepitus, subluxation, effusion, arthritic changes or TTP. R 2/5 UE, 2/5 LE weaker than on admission L 5/5 ROM decreased on right Tone increased on RUE, normal otherwise NEURO: CN VII : Right facial droop CN XI : Decreased shoulder shrug on right, normal on left and head rotation Sensation intact in all extremities with extinction on right. No tremor noted in 4 extremities. Naming and repetition intact. Follows 2 step commands. Aphasia not appreciated Dysarthria not appreciated Dysphagia not appreciated Neglect not appreciated POSTURE and GAIT: Sitting posture good. Balance appears reasonable. Gait slow, with AFO, brace and manual assist to advance LE. PSYCH: Alert, oriented x3, affect appears flat. Insight appears intact. - Constitutional Vitals: Vital Signs - 12hr 01/26/19 01/26/19 01/26/19 00:19 00:20 05:26 Temperature 37.2 C 36.4 C Pulse Rate 84 81 88 Respiratory 17 18 Rate Blood Pressure 127/51 Blood Pressure 136/45 [Left] O2 Sat by Pulse 97 97 100 Oximetry 01/26/19 01/26/19 07:14 07:49 Temperature 36.7 C Pulse Rate 76 79 Respiratory 16 Rate Blood Pressure 118/47 118/47 Blood Pressure [Left] O2 Sat by Pulse 96 Oximetry - Allied health notes Allied health notes reviewed: nursing, PT, ST, OT FIMS assessment as documented by PT/OT/ST: Social interaction/Memory/Problem solving Social Interaction FIM Score 7. Complete [place] (Interacts appropriately. Controls temper.) Memory FIM Score 7. Complete [place] (Remembers people and routines.) Problem Solving FIM Score 7. Complete [place] (Solves complex problems. Self corrects.) Transfers Mode of Locomotion: Wheelchair Bed/Chair/Wheelchair Transfers 4. Minimal Assistance (Patient = 75% or more. FIM Score Needs touching.) Locomotion- walk/wheelchair Most Frequent Mode of Wheelchair Locomotion: Ambulation Distance 50 Walking FIM Score 3. Moderate Assistance (Patient=50% or more. Lifting. Minimum 150 ft.) Wheelchair Propulsion Distance 75 Wheelchair FIM Score 5. Supervision (Minimum 150 ft. supv./cues or 50 ft. independently.) Eating Eating FIM Score 4. Minimal Assistance (Patient = 75% or more) Dressing-Upper body Patient retrieves clothing No items: Patient applies/removes UE No prosthesis or orthosis: Upper Body Dressing FIM Score 3. Moderate Assistance (Patient = 50% or more) Dressing-lower body Patient retrieves clothing No items: Patient applies/removes LE No prosthesis or orthosis: Lower Body Dressing FIM Score 3. Moderate Assistance (Patient = 50% or more) - Labs CBC & Chem 7: 01/26/19 07:28 01/26/19 07:28 Labs: Laboratory Results - last 72 hr 01/23/19 01/23/19 01/23/19 12:06 16:31 21:24 WBC RBC Hgb Hct MCV MCH MCHC RDW Plt Count Sodium Potassium Chloride Carbon Dioxide Anion Gap BUN Creatinine Estimated GFR BUN/Creatinine Ratio Glucose POC Glucose 172 H 111 H 103 Calcium 01/24/19 01/24/19 01/24/19 07:49 11:56 16:31 WBC RBC Hgb Hct MCV MCH MCHC RDW Plt Count Sodium Potassium Chloride Carbon Dioxide Anion Gap BUN Creatinine Estimated GFR BUN/Creatinine Ratio Glucose POC Glucose 108 H 125 H 92 Calcium 01/24/19 01/25/19 01/25/19 21:14 07:29 11:37 WBC RBC Hgb Hct MCV MCH MCHC RDW Plt Count Sodium Potassium Chloride Carbon Dioxide Anion Gap BUN Creatinine Estimated GFR BUN/Creatinine Ratio Glucose POC Glucose 116 H 88 205 H Calcium 01/25/19 01/25/19 01/26/19 16:26 21:40 07:25 WBC RBC Hgb Hct MCV MCH MCHC RDW Plt Count Sodium Potassium Chloride Carbon Dioxide Anion Gap BUN Creatinine Estimated GFR BUN/Creatinine Ratio Glucose POC Glucose 110 H 104 99 Calcium 01/26/19 01/26/19 07:28 07:28 WBC 6.1 RBC 3.97 Hgb 7.6 L Hct 25.5 L MCV 64 L MCH 19 L MCHC 30 RDW 19.5 H Plt Count 288 Sodium 142 Potassium 4.4 Chloride 105.3 Carbon Dioxide 21 L Anion Gap 20 BUN 17 Creatinine 0.9 Estimated GFR > 60 BUN/Creatinine Ratio 19 Glucose 95 POC Glucose Calcium 9.2 Assessment and Plan CVA: Continue secondary stroke prevention. Discussed prognosis and recovery time frame with patient. Explained secondary stroke prevention. Discussed access to outpatient healthcare as well as her need to discontinue tobacco use. Diabetes, poorly controlled: Continue medications and adjust as needed for improved glycemic control. A1c greater than 13 at outside hospital. We'll need to follow-up with a new PCP and also will need diabetic teaching. Adjust glimepiride Constipation: Start bowel medications. Will use suppository tonight as it's been a week since she's had a bowel movement. Anemia: Microcytic and iron deficient at outside hospital however treatment was not started. Replace Fe and VitC Hypertension: Start lisinopril and adjust for normotension Hypotensive episode -resolved after IVF, monitor Pharyngeal phase dysphagia: MATERIAL REQUIREMENTS PLANNING MANAGER evaluation, modified barium swallow - continue with strategies Z73.6 ADL dysfunction: OT will work on improving ability to perform ADLs (inclu ding assistive devices) to increase independence and decrease caregiver burden and improve functional transfers and mobility training. R26.2 Difficulty walking: PT will work on gait training and proper use of assistive devices and advance as appropriate to use of stairs and outside ambulation on uneven surfaces. R26.81 Unsteadiness on feet: PT will work on improving static and dynamic sitting and standing balance as well as proper use of assistive devices to decrease risk of falls. R26.89 Abnormality of gait: PT will work to improve safety and efficiency of gait through neuromotor training and gait training along with instruction on proper use of assistive devices. M62.81 Muscle weakness: PT & OT will work on strengthening exercises to improve functional strength including mixture of closed and open kinetic chain exercises. R53.81 Debility: PT & OT will work on improving overall functional status to improve participation with ADLs, mobility and social involvement. R53.83 Fatigue: PT & OT will work on improving endurance through aerobic exercises and therapeutic activity while monitoring patients tolerance for activity and vital signs as needed. DVT ppx: Lovenox Pain: Continue physical modalities in therapy and pain medications as needed to achieve functional pain control. Sleep: Monitor and address as needed. Bowel: Monitor and address as needed. Appetite: Monitor and address as needed. Discharge planning: Pending therapy progress and care plan meeting. Will continue discussion with therapy team, SW, patient and family. Restrictions/ Precautions: Falls, stroke WB status: FWB Functional Hx: ADLs: Independent Cognition: Independent Mobility: No AD Barriers to Discharge: Decreased mobility and ability to perform self care, balance deficits, weakness Estimated Length of Stay: 1421 days Discharge Destination: Home with family
[2019-01-27 06:27] LABS: Hematocrit 26.1 % (30.3-42.9); Hemoglobin 7.9 gm/dl (10.1-14.3); Mean Corpuscular HGB Conc 30 % (30-34); Platelet Count 290 K/mm3 (140-440); Red Blood Count 4.07 M/mm3 (3.65-5.03); Red Cell Distribution Width 19.3 % (13.2-15.2)
[2019-01-27 06:35] LABS: Mean Corpuscular Volume 64 fl (79-97)
[2019-01-27 06:47] LABS: Iron 14 ug/dL (37-170); Total Iron Binding Capacity 266 mcg/dL (250-450)
[2019-01-27] MEDS: ASPIRIN EC 325 MG TAB PO SCH (07:27)
[2019-01-27] MEDS: LISINOPRIL 10 MG TAB PO SCH (07:27)
[2019-01-27] MEDS: metFORMIN 500 MG TAB PO SCH ×2 (07:27→17:44)
[2019-01-27] MEDS: GLIMEPIRIDE 2 MG TAB PO SCH (07:27)
[2019-01-27] MEDS: DOCUSATE SODIUM 100 MG CAP PO SCH ×2 (07:27→22:39)
[2019-01-27] MEDS: FERROUS SULFATE 325 MG TAB PO SCH (07:27)
[2019-01-27] MEDS: ASCORBIC ACID 500 MG TAB PO SCH (07:28)
[2019-01-27] MEDS: ENOXAPARIN 40 MG/0.4 ML INJ SUB-Q SCH (07:28)
[2019-01-27] MEDS: INSULIN LISPRO 100 UNIT/ML SUB-Q SCH ×5 (07:40→22:39)
--- NOTE | 2019-01-27 08:55 | Progress Note ---
Subjective Date of service: 01/27/19 Principal diagnosis: CVA Interval history: 68-year-old female who presented with progressive right-sided weakness over a period of 2 weeks. After symptoms had not improved in that. At time she decided to seek assistance at the ER. She was admitted for presumptive CVA, CT of the head showed bilateral basal ganglia age indeterminate infarcts. Later an MRI was obtained which showed chronic small vessel disease and multiple lacunar infarcts but no findings of an acute CVA (however a left MCA CVA was mentioned in discharge paperwork, perhaps they were able to see something on imaging that the radiologist missed and that I cannot see with just the available report). She does not seek medical treatment on a regular basis and has untreated type 2 diabetes, A1c is 13.3. She was also found to be anemic but does not appear to have been treated for iron deficiency. We will reorder an anemia workup and treat appropriately. She was seen by therapy and determined to be a good candidate for acute inpatient rehabilitation. Patient also states that she does not have part B for her Medicare and does not see an physician on the outside. We'll need to have social work speak with her and help her with some programs to get her better coverage if she will need to have outpatient follow-up going forward with the stroke and the poorly controlled diabetes. Patient is participating in therapy and making reasonable progress. Taking rest breaks as needed. -BM. Awaiting stool occult blood test. Repeat iron studies shows no improvement in Fe level, likely ACD with an acute component. Stop Fe supplement. FOBT due to decreasing Hgb. Awaiting differential for CBC. May need hematology consult if no improvement seen. Denies pain, palpitations, dy spnea, cough, N/V, or joint pain. GLU improved. Discussed with patient. All records, vitals, labs and medications were reviewed. No other issues per patient, nursing or therapy. Objective - Exam Narrative Exam: MUSCULOSKELETAL SPECIALTY EXAM CONSTITUTIONAL: Well developed, well nourished, appropriately groomed. RIGHT hand dominant. RESPIRATORY: Clear to auscultation bilaterally, no increased work of breathing CARDIOVASCULAR: Regular Rate/ Rhythm, no swelling, edema or tenderness in BUE or BLE. All extremities warm. GI: + bowel sounds, soft, NTTP, nondistended. INTEGUMENTARY: Normal, no lesion, rash, masses or bruising noted in extremities. MUSCULOSKELETAL: Slight right shoulder sublux, otherwise BUE and BLE normal without defect, crepitus, subluxation, effusion, arthritic changes or TTP. R 2/5 UE, 2/5 LE weaker than on admission L 5/5 ROM decreased on right Tone increased on RUE, normal otherwise NEURO: CN VII : Right facial droop CN XI : Decreased shoulder shrug on right, normal on left and head rotation Sensation intact in all extremities with extinction on right. No tremor noted in 4 extremities. Naming and repetition intact. Follows 2 step commands. Aphasia not appreciated Dysarthria not appreciated Dysphagia not appreciated Neglect not appreciated POSTURE and GAIT: Sitting posture good. Balance appears reasonable. Gait slow, with AFO, brace and manual assist to advance LE. PSYCH: Alert, oriented x3, affect appears flat. Insight appears intact. - Constitutional Vitals: Vital Signs - 12hr 01/27/19 08:07 Temperature 37.3 C Pulse Rate 82 Respiratory 18 Rate Blood Pressure 120/85 O2 Sat by Pulse 100 Oximetry - Allied health notes Allied health notes reviewed: nursing, PT, ST, OT FIMS assessment as documented by PT/OT/ST: Social interaction/Memory/Problem solving Social Interaction FIM Score 7. Complete [place] (Interacts appropriately. Controls temper.) Memory FIM Score 7. Complete [place] (Remembers people and routines.) Problem Solving FIM Score 7. Complete [place] (Solves complex problems. Self corrects.) Transfers Mode of Locomotion: Wheelchair Bed/Chair/Wheelchair Transfers 4. Minimal Assistance (Patient = 75% or more. FIM Score Needs touching.) Locomotion- walk/wheelchair Most Frequent Mode of Wheelchair Locomotion: Ambulation Distance 50 Walking FIM Score 3. Moderate Assistance (Patient=50% or more. Lifting. Minimum 150 ft.) Wheelchair Propulsion Distance 75 Wheelchair FIM Score 5. Supervision (Minimum 150 ft. supv./cues or 50 ft. independently.) Eating Eating FIM Score 4. Minimal Assistance (Patient = 75% or more) Dressing-Upper body Patient retrieves clothing No items: Patient applies/removes UE No prosthesis or orthosis: Upper Body Dressing FIM Score 3. Moderate Assistance (Patient = 50% or more) Dressing-lower body Patient retrieves clothing No items: Patient applies/removes LE No prosthesis or orthosis: Lower Body Dressing FIM Score 3. Moderate Assistance (Patient = 50% or more) - Labs CBC & Chem 7: 01/27/19 05:55 01/26/19 07:28 Labs: Laboratory Results - last 72 hr 01/24/19 01/24/19 01/24/19 11:56 16:31 21:14 WBC RBC Hgb Hct MCV MCH MCHC RDW Plt Count Sodium Potassium Chloride Carbon Dioxide Anion Gap BUN Creatinine Estimated GFR BUN/Creatinine Ratio Glucose POC Glucose 125 H 92 116 H Calcium Iron TIBC Ferritin 01/25/19 01/25/19 01/25/19 07:29 11:37 16:26 WBC RBC Hgb Hct MCV MCH MCHC RDW Plt Count Sodium Potassium Chloride Carbon Dioxide Anion Gap BUN Creatinine Estimated GFR BUN/Creatinine Ratio Glucose POC Glucose 88 205 H 110 H Calcium Iron TIBC Ferritin 01/25/19 01/26/19 01/26/19 21:40 07:25 07:28 WBC 6.1 RBC 3.97 Hgb 7.6 L Hct 25.5 L MCV 64 L MCH 19 L MCHC 30 RDW 19.5 H Plt Count 288 Sodium Potassium Chloride Carbon Dioxide Anion Gap BUN Creatinine Estimated GFR BUN/Creatinine Ratio Glucose POC Glucose 104 99 Calcium Iron TIBC Ferritin 01/26/19 01/26/19 01/26/19 07:28 11:57 12:18 WBC RBC Hgb Hct MCV MCH MCHC RDW Plt Count Sodium 142 Potassium 4.4 Chloride 105.3 Carbon Dioxide 21 L Anion Gap 20 BUN 17 Creatinine 0.9 Estimated GFR > 60 BUN/Creatinine Ratio 19 Glucose 95 POC Glucose 390 H 202 H Calcium 9.2 Iron TIBC Ferritin 01/26/19 01/26/19 01/27/19 16:47 22:05 05:55 WBC 5.5 RBC 4.07 Hgb 7.9 L Hct 26.1 L MCV 64 L MCH 19 L MCHC 30 RDW 19.3 H Plt Count 290 Sodium Potassium Chloride Carbon Dioxide Anion Gap BUN Creatinine Estimated GFR BUN/Creatinine Ratio Glucose POC Glucose 89 133 H Calcium Iron TIBC Ferritin 01/27/19 01/27/19 01/27/19 05:55 05:55 08:16 WBC RBC Hgb Hct MCV MCH MCHC RDW Plt Count Sodium Potassium Chloride Carbon Dioxide Anion Gap BUN Creatinine Estimated GFR BUN/Creatinine Ratio Glucose POC Glucose 132 H Calcium Iron 14 L TIBC 266 Ferritin 315.4 Assessment and Plan CVA: Continue secondary stroke prevention. Discussed prognosis and recovery time frame with patient. Explained secondary stroke prevention. Discussed access to outpatient healthcare as well as her need to discontinue tobacco use. Diabetes, poorly controlled: Continue medications and adjust as needed for improved glycemic control. A1c greater than 13 at outside hospital. We'll need to follow-up with a new PCP and also will need diabetic teaching. Adjust glimepiride Constipation: Start bowel medications. Will use suppository tonight as it's been a week since she's had a bowel movement. Anemia: Stop Fe, likely ACD with an acute component - awaiting differential. Checking for GIB with FOBT. Pt denies any known issues previously of GIB or anemia issues. Hypertension: Start lisinopril and adjust for normotension Hypotensive episode -resolved after IVF, monitor Pharyngeal phase dysphagia: GRINDER CHIPPER evaluation, modified barium swallow - continue with strategies Z73.6 ADL dysfunction: OT will work on improving ability to perform ADLs (including assistive devices) to increase independence and decrease caregiver burden and improve functional transfers and mobility training. R26.2 Difficulty walking: PT will work on gait training and proper use of assistive devices and advance as appropriate to use of stairs and outside ambulation on uneven surfaces. R26.81 Unsteadiness on feet: PT will work on improving static and dynamic sitting and standing balance as well as proper use of assistive devices to decrease risk of falls. R26.89 Abnormality of gait: PT will work to improve safety and efficiency of gait through neuromotor training and gait training along with instruction on proper use of assistive devices. M62.81 Muscle weakness: PT & OT will work on strengthening exercises to improve functional strength including mixture of closed and open kinetic chain exercises. R53.81 Debility: PT & OT will work on improving overall functional status to improve participation with ADLs, mobility and social involvement. R53.83 Fatigue: PT & OT will work on improving endurance through aerobic exercises and therapeutic activity while monitoring patients tolerance for activity and vital signs as needed. DVT ppx: Lovenox Pain: Continue physical modalities in therapy and pain medications as needed to achieve functional pain control. Sleep: Monitor and address as needed. Bowel: Monitor and address as needed. Appetite: Monitor and address as needed. Discharge planning: Pending therapy progress and care plan meeting. Will continue discussion with therapy team, SW, patient and family. Restrictions/ Precautions: Falls, stroke WB status: FWB Functional Hx: ADLs: Independent Cognition: Independent Mobility: No AD Barriers to Discharge: Decreased mobility and ability to perform self care, balance deficits, weakness Estimated Length of Stay: 1421 days Discharge Destination: Home with family
[2019-01-28 07:00] LABS: Alanine Aminotransferase 32 units/L (7-56); Albumin 3.6 g/dL (3.9-5)
[2019-01-28 07:28] LABS: Bilirubin,Direct < 0.2 mg/dL (0-0.2)
[2019-01-28] MEDS: ASPIRIN EC 325 MG TAB PO SCH (09:11)
[2019-01-28] MEDS: GLIMEPIRIDE 2 MG TAB PO SCH (09:11)
[2019-01-28] MEDS: ENOXAPARIN 40 MG/0.4 ML INJ SUB-Q SCH (09:12)
[2019-01-28] MEDS: LISINOPRIL 10 MG TAB PO SCH (09:12)
[2019-01-28] MEDS: metFORMIN 500 MG TAB PO SCH ×2 (09:12→17:41)
[2019-01-28] MEDS: INSULIN LISPRO 100 UNIT/ML SUB-Q SCH ×3 (09:12→21:04)
[2019-01-28] MEDS: DOCUSATE SODIUM 100 MG CAP PO SCH ×2 (09:12→22:11)
[2019-01-29] MEDS: INSULIN LISPRO 100 UNIT/ML SUB-Q SCH ×4 (07:30→23:34)
[2019-01-29] MEDS: DOCUSATE SODIUM 100 MG CAP PO SCH ×2 (08:13→23:34)
[2019-01-29] MEDS: ASPIRIN EC 325 MG TAB PO SCH (08:13)
[2019-01-29] MEDS: GLIMEPIRIDE 2 MG TAB PO SCH (08:13)
[2019-01-29] MEDS: ENOXAPARIN 40 MG/0.4 ML INJ SUB-Q SCH (08:13)
[2019-01-29] MEDS: metFORMIN 500 MG TAB PO SCH ×2 (08:13→16:08)
[2019-01-29] MEDS: LISINOPRIL 10 MG TAB PO SCH (08:15)
--- NOTE | 2019-01-29 10:20 | Progress Note ---
Subjective Date of service: 01/29/19 Principal diagnosis: CVA Interval history: 68-year-old female who presented with progressive right-sided weakness over a period of 2 weeks. After symptoms had not improved in that. At time she decided to seek assistance at the ER. She was admitted for presumptive CVA, CT of the head showed bilateral basal ganglia age indeterminate infarcts. Later an MRI was obtained which showed chronic small vessel disease and multiple lacunar infarcts but no findings of an acute CVA (however a left MCA CVA was mentioned in discharge paperwork, perhaps they were able to see something on imaging that the radiologist missed and that I cannot see with just the available report). She does not seek medical treatment on a regular basis and has untreated type 2 diabetes, A1c is 13.3. She was also found to be anemic but does not appear to have been treated for iron deficiency. We will reorder an anemia workup and treat appropriately. She was seen by therapy and determined to be a good candidate for acute inpatient rehabilitation. Patient also states that she does not have part B for her Medicare and does not see an physician on the outside. We'll need to have social work speak with her and help her with some programs to get her better coverage if she will need to have outpatient follow-up going forward with the stroke and the poorly controlled diabetes. Patient is participating in therapy and making reasonable progress. Taking rest breaks as needed. -BM. Awaiting stool occult blood test, reordered. Differential not done, reorder. May need hematology consult if no improvement seen. LFTs improved, Alk Phos worse. Denies pain, palpitations, dyspnea, cough, N/V, or joint pain. Discussed need for BM, discussed with nursing and pt, will order one time medications today. GLU improved. Discussed with patient. All records, vitals, labs and medications were reviewed. No other issues per patient, nursing or therapy. Objective - Exam Narrative Exam: MUSCULOSKELETAL SPECIALTY EXAM CONSTITUTIONAL: Well developed, well nourished, appropriately groomed. RIGHT hand dominant. RESPIRATORY: Clear to auscultation bilaterally, no increased work of breathing CARDIOVASCULAR: Regular Rate/ Rhythm, no swelling, edema or tenderness in BUE or BLE. All extremities warm. GI: + bowel sounds, soft, NTTP, nondistended. INTEGUMENTARY: Normal, no lesion, rash, masses or bruising noted in extremities. MUSCULOSKELETAL: Slight right shoulder sublux, otherwise BUE and BLE normal without defect, crepitus, subluxation, effusion, arthritic changes or TTP. R 2/5 UE, 2/5 LE weaker than on admission L 5/5 ROM decreased on right Tone increased on RUE, normal otherwise NEURO: CN VII : Right facial droop CN XI : Decreased shoulder shrug on right, normal on left and head rotation Sensation intact in all extremities with extinction on right. No tremor noted in 4 extremities. Naming and repetition intact. Follows 2 step commands. Aphasia not appreciated Dysarthria not appreciated Dysphagia not appreciated Neglect not appreciated POSTURE and GAIT: Sitting posture good. Balance appears reasonable. Gait slow, with AFO, brace and manual assist to advance LE. PSYCH: Alert, oriented x3, affect appears flat. Insight appears intact. - Constitutional Vitals: Vital Signs - 12hr 01/29/19 01/29/19 05:16 07:42 Temperature 37.3 C 36.6 C Pulse Rate 87 84 Respiratory 18 18 Rate Blood Pressure 121/56 100/44 O2 Sat by Pulse 97 100 Oximetry - Allied health notes Allied health notes reviewed: nursing, PT, ST, OT FIMS assessment as documented by PT/OT/ST: Social interaction/Memory/Problem solving Social Interaction FIM Score 6. Mod. [place] (Mostly appropriate. May need meds. No supv.) Memory FIM Score 6. Modified [place](Mild difficulty remembering people/routines.) Problem Solving FIM Score 6. Mod. [place] (Mild difficulty or needs more time w/ complex.) Transfers Mode of Locomotion: Wheelchair Bed/Chair/Wheelchair Transfers 4. Minimal Assistance (Patient = 75% or more. FIM Score Needs touching.) Locomotion- walk/wheelchair Most Frequent Mode of Wheelchair Locomotion: Ambulation Distance 50 Walking FIM Score 3. Moderate Assistance (Patient=50% or more. Lifting. Minimum 150 ft.) Wheelchair Propulsion Distance 75 Wheelchair FIM Score 5. Supervision (Minimum 150 ft. supv./cues or 50 ft. independently.) Eating Eating FIM Score 4. Minimal Assistance (Patient = 75% or more) Dressing-Upper body Patient retrieves clothing No items: Patient applies/removes UE No prosthesis or orthosis: Upper Body Dressing FIM Score 3. Moderate Assistance (Patient = 50% or more) Dressing-lower body Patient retrieves clothing No items: Patient applies/removes LE No prosthesis or orthosis: Lower Body Dressing FIM Score 3. Moderate Assistance (Patient = 50% or more) - Labs CBC & Chem 7: 01/27/19 05:55 01/26/19 07:28 Labs: Laboratory Results - last 72 hr 01/26/19 01/26/19 01/26/19 11:57 12:18 16:47 WBC RBC Hgb Hct MCV MCH MCHC RDW Plt Count POC Glucose 390 H 202 H 89 Iron TIBC Ferritin Total Bilirubin Direct Bilirubin Indirect Bilirubin AST ALT Alkaline Phosphatase C-Reactive Protein Total Protein Albumin Albumin/Globulin Ratio 01/26/19 01/27/19 01/27/19 22:05 05:55 05:55 WBC 5.5 RBC 4.07 Hgb 7.9 L Hct 26.1 L MCV 64 L MCH 19 L MCHC 30 RDW 19.3 H Plt Count 290 POC Glucose 133 H Iron 14 L TIBC 266 Ferritin Total Bilirubin Direct Bilirubin Indirect Bilirubin AST ALT Alkaline Phosphatase C-Reactive Protein Total Protein Albumin Albumin/Globulin Ratio 01/27/19 01/27/19 01/27/19 05:55 08:16 11:48 WBC RBC Hgb Hct MCV MCH MCHC RDW Plt Count POC Glucose 132 H 201 H Iron TIBC Ferritin 315.4 Total Bilirubin Direct Bilirubin Indirect Bilirubin AST ALT Alkaline Phosphatase C-Reactive Protein Total Protein Albumin Albumin/Globulin Ratio 01/27/19 01/27/19 01/27/19 13:06 16:07 23:02 WBC RBC Hgb Hct MCV MCH MCHC RDW Plt Count POC Glucose 127 H 99 Iron TIBC Ferritin Total Bilirubin Direct Bilirubin Indirect Bilirubin AST ALT Alkaline Phosphatase C-Reactive Protein 1.00 Total Protein Albumin Albumin/Globulin Ratio 01/28/19 01/28/19 01/28/19 05:58 08:22 12:47 WBC RBC Hgb Hct MCV MCH MCHC RDW Plt Count POC Glucose 78 159 H Iron TIBC Ferritin Total Bilirubin 0.50 Direct Bilirubin < 0.2 Indirect Bilirubin 0.3 AST 31 ALT 32 Alkaline Phosphatase 283 H C-Reactive Protein Total Protein 7.0 Albumin 3.6 L Albumin/Globulin Ratio 1.1 01/28/19 01/28/19 01/29/19 17:49 21:03 07:52 WBC RBC Hgb Hct MCV MCH MCHC RDW Plt Count POC Glucose 110 H 115 H 106 H Iron TIBC Ferritin Total Bilirubin Direct Bilirubin Indirect Bilirubin AST ALT Alkaline Phosphatase C-Reactive Protein Total Protein Albumin Albumin/Globulin Ratio Assessment and Plan CVA: Continue secondary stroke prevention. Discussed prognosis and recovery time frame with patient. Explained secondary stroke prevention. Discussed access to outpatient healthcare as well as her need to discontinue tobacco use. Diabetes, poorly controlled: Continue medications and adjust as needed for improved glycemic control. A1c greater than 13 at outside hospital. We'll need to follow-up with a new PCP and also will need diabetic teaching. Adjust glimepiride Constipation: Start bowel medications. Will use suppository tonight as it's been a week since she's had a bowel movement. Anemia: Stop Fe, likely ACD with an acute component - awaiting differential. Checking for GIB with FOBT. Pt denies any known issues previously of GIB or anemia issues. Hypertension: Start lisinopril and adjust for normotension Hypotensive episode -resolved after IVF, monitor Pharyngeal phase dysphagia: W[employer]HOU[employer]ENTIVE SELECTOR evaluation, modified barium swallow - continue with strategies Z73.6 ADL dysfunction: OT will work on improving ability to perform ADLs (including assistive devices) to increase independence and decrease caregiver burden and improve functional transfers and mobility training. R26.2 Difficulty walking: PT will work on gait training and proper use of assistive devices and advance as appropriate to use of stairs and outside ambulation on uneven surfaces. R26.81 Unsteadiness on feet: PT will work on improving static and dynamic sitti ng and standing balance as well as proper use of assistive devices to decrease risk of falls. R26.89 Abnormality of gait: PT will work to improve safety and efficiency of gait through neuromotor training and gait training along with instruction on proper use of assistive devices. M62.81 Muscle weakness: PT & OT will work on strengthening exercises to improve functional strength including mixture of closed and open kinetic chain exercises. R53.81 Debility: PT & OT will work on improving overall functional status to improve participation with ADLs, mobility and social involvement. R53.83 Fatigue: PT & OT will work on improving endurance through aerobic exercises and therapeutic activity while monitoring patients tolerance for activity and vital signs as needed. DVT ppx: Lovenox Pain: Continue physical modalities in therapy and pain medications as needed to achieve functional pain control. Sleep: Monitor and address as needed. Bowel: Monitor and address as needed. Appetite: Monitor and address as needed. Discharge planning: Pending therapy progress and care plan meeting. Charles graham ontinue discussion with therapy team, SW, patient and family. Restrictions/ Precautions: Falls, stroke WB status: FWB Functional Hx: ADLs: Independent Cognition: Independent Mobility: No AD Barriers to Discharge: Decreased mobility and ability to perform self care, balance deficits, weakness Estimated Length of Stay: 1421 days Discharge Destination: Home with family
[2019-01-29] MEDS ORDERED: POLYETHYLENE GLYCOL 3350 17 GM POWDER PO ONE (12:00)
[2019-01-29 21:03] LABS: Basophils % (Auto) 0.7 % (0.0-1.8); Eosinophils # (Auto) 0.3 K/mm3 (0.0-0.4); Eosinophils % (Auto) 4.5 % (0.0-4.3); Hematocrit 23.5 % (30.3-42.9); Hemoglobin 7.1 gm/dl (10.1-14.3); Lymphocytes % (Auto) 18.1 % (13.4-35.0); Mean Corpuscular HGB Conc 30 % (30-34); Monocytes # (Auto) 0.5 K/mm3 (0.0-0.8); Monocytes % (Auto) 8.7 % (0.0-7.3); Platelet Count 296 K/mm3 (140-440); Red Blood Count 3.68 M/mm3 (3.65-5.03)
[2019-01-29 21:10] LABS: Mean Corpuscular Volume 64 fl (79-97)
[2019-01-30] MEDS: GLIMEPIRIDE 2 MG TAB PO SCH (08:58)
[2019-01-30] MEDS: LISINOPRIL 10 MG TAB PO SCH (08:58)
[2019-01-30] MEDS: ASPIRIN EC 325 MG TAB PO SCH (08:58)
[2019-01-30] MEDS: metFORMIN 500 MG TAB PO SCH ×2 (08:58→17:29)
[2019-01-30] MEDS: DOCUSATE SODIUM 100 MG CAP PO SCH ×2 (08:58→21:31)
[2019-01-30] MEDS: ENOXAPARIN 40 MG/0.4 ML INJ SUB-Q SCH (08:58)
[2019-01-30] MEDS: INSULIN LISPRO 100 UNIT/ML SUB-Q SCH ×4 (08:59→21:31)
[2019-01-31] MEDS: INSULIN LISPRO 100 UNIT/ML SUB-Q SCH ×4 (08:22→21:35)
[2019-01-31] MEDS: ASPIRIN EC 325 MG TAB PO SCH (08:24)
[2019-01-31] MEDS: metFORMIN 500 MG TAB PO SCH ×2 (08:24→17:02)
[2019-01-31] MEDS: ENOXAPARIN 40 MG/0.4 ML INJ SUB-Q SCH (08:24)
[2019-01-31] MEDS: LISINOPRIL 10 MG TAB PO SCH (08:24)
[2019-01-31] MEDS: GLIMEPIRIDE 2 MG TAB PO SCH (08:24)
[2019-01-31] MEDS: DOCUSATE SODIUM 100 MG CAP PO SCH ×2 (08:24→21:26)
[2019-02-01 07:54] LABS: Basophils # (Auto) 0.1 K/mm3 (0.0-0.1); Basophils % (Auto) 1.3 % (0.0-1.8); Eosinophils # (Auto) 0.3 K/mm3 (0.0-0.4); Eosinophils % (Auto) 6.5 % (0.0-4.3); Hematocrit 24.9 % (30.3-42.9); Hemoglobin 7.7 gm/dl (10.1-14.3); Lymphocytes # (Auto) 1.1 K/mm3 (1.2-5.4); Lymphocytes % (Auto) 20.6 % (13.4-35.0); Mean Corpuscular HGB Conc 31 % (30-34); Monocytes # (Auto) 0.5 K/mm3 (0.0-0.8); Platelet Count 286 K/mm3 (140-440); Red Blood Count 3.91 M/mm3 (3.65-5.03); Red Cell Distribution Width 19.2 % (13.2-15.2)
[2019-02-01 07:56] LABS: Mean Corpuscular Volume 64 fl (79-97)
[2019-02-01] MEDS: INSULIN LISPRO 100 UNIT/ML SUB-Q SCH ×4 (08:46→22:10)
[2019-02-01] MEDS: DOCUSATE SODIUM 100 MG CAP PO SCH ×2 (08:46→22:10)
[2019-02-01] MEDS: GLIMEPIRIDE 2 MG TAB PO SCH (08:46)
[2019-02-01] MEDS: ASPIRIN EC 325 MG TAB PO SCH (08:46)
[2019-02-01] MEDS: metFORMIN 500 MG TAB PO SCH ×2 (08:46→17:27)
[2019-02-01] MEDS: ENOXAPARIN 40 MG/0.4 ML INJ SUB-Q SCH (08:46)
[2019-02-01] MEDS: LISINOPRIL 10 MG TAB PO SCH (08:47)
--- NOTE | 2019-02-01 09:44 | Progress Note ---
Subjective Date of service: 02/01/19 Principal diagnosis: CVA Interval history: 68-year-old female who presented with progressive right-sided weakness over a period of 2 weeks. After symptoms had not improved in that. At time she decided to seek assistance at the ER. She was admitted for presumptive CVA, CT of the head showed bilateral basal ganglia age indeterminate infarcts. Later an MRI was obtained which showed chronic small vessel disease and multiple lacunar infarcts but no findings of an acute CVA (however a left MCA CVA was mentioned in discharge paperwork, perhaps they were able to see something on imaging that the radiologist missed and that I cannot see with just the available report). She does not seek medical treatment on a regular basis and has untreated type 2 diabetes, A1c is 13.3. She was also found to be anemic but does not appear to have been treated for iron deficiency. We will reorder an anemia workup and treat appropriately. She was seen by therapy and determined to be a good candidate for acute inpatient rehabilitation. Patient also states that she does not have part B for her Medicare and does not see an physician on the outside. We'll need to have social work speak with her and help her with some programs to get her better coverage if she will need to have outpatient follow-up going forward with the stroke and the poorly controlled diabetes. Patient is participating in therapy and making reasonable progress. Taking rest breaks as needed. -BM. NEG stool occult blood test. Differential shows increased RDW. May need hematology consult if no improvement seen. Denies pain, palpitations, dyspnea, cough, N/V, or joint pain. GLU improved. Poor return in RUE/RLE, Discussed with patient. Denies depression/assistance for mood All records, vitals, labs and medications were reviewed. No other issues per patient, nursing or therapy. Objective - Exam Narrative Exam: MUSCULOSKELETAL SPECIALTY EXAM CONSTITUTIONAL: Well developed, well nourished, appropriately groomed. RIGHT hand dominant. RESPIRATORY: Clear to auscultation bilaterally, no increased work of breathing CARDIOVASCULAR: Regular Rate/ Rhythm, no swelling, edema or tenderness in BUE or BLE. All extremities warm. GI: + bowel sounds, soft, NTTP, nondistended. INTEGUMENTARY: Normal, no lesion, rash, masses or bruising noted in extremities. MUSCULOSKELETAL: Slight right shoulder sublux, otherwise BUE and BLE normal without defect, crepitus, subluxation, effusion, arthritic changes or TTP. R 2/5 UE, 2/5 LE weaker than on admission L 5/5 ROM decreased on right Tone increased on RUE, normal otherwise NEURO: CN VII : Right facial droop CN XI : Decreased shoulder shrug on right, normal on left and head rotation Sensation intact in all extremities with extinction on right. No tremor noted in 4 extremities. Naming and repetition intact. Follows 2 step commands. Aphasia not appreciated Dysarthria not appreciated Dysphagia not appreciated Neglect not appreciated POSTURE and GAIT: Sitting posture good. Balance appears reasonable. Gait slow, with AFO, brace and manual assist to advance LE. PSYCH: Alert, oriented x3, affect appears flat. Insight appears intact. - Constitutional Vitals: Vital Signs - 12hr 02/01/19 02/01/19 08:00 08:47 Temperature 36.6 C Pulse Rate 76 76 Respiratory 18 Rate Blood Pressure 109/52 Blood Pressure 109/52 [Left] O2 Sat by Pulse 96 Oximetry - Allied health notes Allied health notes reviewed: nursing, PT, ST, OT FIMS assessment as documented by PT/OT/ST: Social interaction/Memory/Problem solving Social Interaction FIM Score 7. Complete [place] (Interacts appropriately. Controls temper.) Memory FIM Score 6. Modified [place](Mild difficulty remembering people/routines.) Problem Solving FIM Score 6. Mod. [place] (Mild difficulty or needs more time w/ complex.) Transfers Mode of Locomotion: Wheelchair Bed/Chair/Wheelchair Transfers 3. Moderate Assistance (Patient = 50% or more. FIM Score Some lifting.) Locomotion- walk/wheelchair Most Frequent Mode of Wheelchair Locomotion: Ambulation Distance 50 Walking FIM Score 3. Moderate Assistance (Patient=50% or more. Lifting. Minimum 150 ft.) Wheelchair Propulsion Distance 75 Wheelchair FIM Score 5. Supervision (Minimum 150 ft. supv./cues or 50 ft. independently.) Eating Eating FIM Score 4. Minimal Assistance (Patient = 75% or more) Dressing-Upper body Patient retrieves clothing No items: Patient applies/removes UE No prosthesis or orthosis: Upper Body Dressing FIM Score 2. Maximal Assistance (Patient = 25% or more) Dressing-lower body Patient retrieves clothing No items: Patient applies/removes LE No prosthesis or orthosis: Lower Body Dressing FIM Score 1. Total Assistance (Patient less than 25%) - Labs CBC & Chem 7: 02/01/19 07:38 01/26/19 07:28 Labs: Laboratory Results - last 72 hr 01/29/19 01/29/19 01/29/19 12:36 19:48 20:54 WBC 5.7 RBC 3.68 Hgb 7.1 L Hct 23.5 L MCV 64 L MCH 19 L MCHC 30 RDW 19.0 H Plt Count 296 Lymph % (Auto) 18.1 [place] % (Auto) 8.7 H Eos % (Auto) 4.5 H Baso % (Auto) 0.7 Lymph # 1.0 L [place] # 0.5 Eos # 0.3 Baso # 0.0 Seg Neutrophils % 68.0 Seg Neutrophils # 3.9 POC Glucose 134 H 89 01/30/19 01/30/19 01/30/19 07:41 11:23 16:28 WBC RBC Hgb Hct MCV MCH MCHC RDW Plt Count Lymph % (Auto) [place] % (Auto) Eos % (Auto) Baso % (Auto) Lymph # [place] # Eos # Baso # Seg Neutrophils % Seg Neutrophils # POC Glucose 138 H 191 H 96 01/30/19 01/31/19 01/31/19 19:55 07:41 12:05 WBC RBC Hgb Hct MCV MCH MCHC RDW Plt Count Lymph % (Auto) [place] % (Auto) Eos % (Auto) Baso % (Auto) Lymph # [place] # Eos # Baso # Seg Neutrophils % Seg Neutrophils # POC Glucose 114 H 105 170 H 01/31/19 01/31/19 02/01/19 16:48 21:44 07:38 WBC 5.2 RBC 3.91 Hgb 7.7 L Hct 24.9 L MCV 64 L MCH 20 L MCHC 31 RDW 19.2 H Plt Count 286 Lymph % (Auto) 20.6 [place] % (Auto) 10.0 H Eos % (Auto) 6.5 H Baso % (Auto) 1.3 Lymph # 1.1 L [place] # 0.5 Eos # 0.3 Baso # 0.1 Seg Neutrophils % 61.6 Seg Neutrophils # 3.2 POC Glucose 102 96 02/01/19 07:51 WBC RBC Hgb Hct MCV MCH MCHC RDW Plt Count Lymph % (Auto) [place] % (Auto) Eos % (Auto) Baso % (Auto) Lymph # [place] # Eos # Baso # Seg Neutrophils % Seg Neutrophils # POC Glucose 96 Assessment and Plan CVA: Continue secondary stroke prevention. Discussed prognosis and recovery time frame with patient. Explained secondary stroke prevention. Discussed access to outpatient healthcare as well as her need to discontinue tobacco use. Diabetes, poorly controlled: Continue medications and adjust as needed for improved glycemic control. A1c greater than 13 at outside hospital. We'll need to follow-up with a new PCP and also will need diabetic teaching. Adjust glimepiride Constipation: Start bowel medications. Will use suppository tonight as it's been a week since she's had a bowel movement. Anemia: likely ACD with an acute component - NEG FOBT. Pt denies any known issues previously of GIB or anemia issues. Hypertension: Start lisinopril and adjust for normotension Hypotensive episode -resolved after IVF, monitor Pharyngeal phase dysphagia: [employer]LINE [employer]CH[employer]ISING SPECIALIST evaluation, modified barium swallow - continue with strategies Z73.6 ADL dysfunction: OT will work on improving ability to perform ADLs ( including assistive devices) to increase independence and decrease caregiver burden and improve functional transfers and mobility training. R26.2 Difficulty walking: PT will work on gait training and proper use of assistive devices and advance as appropriate to use of stairs and outside ambulation on uneven surfaces. R26.81 Unsteadiness on feet: PT will work on improving static and dynamic sitting and standing balance as well as proper use of assistive devices to decrease risk of falls. R26.89 Abnormality of gait: PT will work to improve safety and efficiency of gait through neuromotor training and gait training along with instruction on proper use of assistive devices. M62.81 Muscle weakness: PT & OT will work on strengthening exercises to improve functional strength including mixture of closed and open kinetic chain exercises. R53.81 Debility: PT & OT will work on improving overall functional status to improve participation with ADLs, mobility and social involvement. R53.83 Fatigue: PT & OT will work on improving endurance through aerobic exercises and therapeutic activity while monitoring patients tolerance for activity and vital signs as needed. DVT ppx: Lovenox Pain: Continue physical modalities in therapy and pain medications as needed to achieve functional pain control. Sleep: Monitor and address as needed. Bowel: Monitor and address as needed. Appetite: Monitor and address as needed. Discharge planning: Pending therapy progress and care plan meeting. Will con tinue discussion with therapy team, SW, patient and family. Restrictions/ Precautions: Falls, stroke WB status: FWB Functional Hx: ADLs: Independent Cognition: Independent Mobility: No AD Barriers to Discharge: Decreased mobility and ability to perform self care, balance deficits, weakness Estimated Length of Stay: 1421 days Discharge Destination: Home with family
[2019-02-02] MEDS: INSULIN LISPRO 100 UNIT/ML SUB-Q SCH ×3 (07:13→16:28)
[2019-02-02] MEDS: metFORMIN 500 MG TAB PO SCH ×2 (08:17→16:16)
--- NOTE | 2019-02-02 09:24 | Progress Note ---
Subjective Date of service: 02/02/19 Principal diagnosis: CVA Interval history: 68-year-old female who presented with progressive right-sided weakness over a period of 2 weeks. After symptoms had not improved in that. At time she decided to seek assistance at the ER. She was admitted for presumptive CVA, CT of the head showed bilateral basal ganglia age indeterminate infarcts. Later an MRI was obtained which showed chronic small vessel disease and multiple lacunar infarcts but no findings of an acute CVA (however a left MCA CVA was mentioned in discharge paperwork, perhaps they were able to see something on imaging that the radiologist missed and that I cannot see with just the available report). She does not seek medical treatment on a regular basis and has untreated type 2 diabetes, A1c is 13.3. She was also found to be anemic but does not appear to have been treated for iron deficiency. We will reorder an anemia workup and treat appropriately. She was seen by therapy and determined to be a good candidate for acute inpatient rehabilitation. Patient also states that she does not have part B for her Medicare and does not see an physician on the outside. We'll need to have social work speak with her and help her with some programs to get her better coverage if she will need to have outpatient follow-up going forward with the stroke and the poorly controlled diabetes. Patient is participating in therapy and making reasonable progress. Taking rest breaks as needed. +BM. Denies pain, palpitations, dyspnea, cough, N/V, or joint pain. GLU low this morning due to poor oral intake. Reduce glimiperide. Poor return in RUE/RLE, Discussed with patient. Denies depression/assistance for mood Patient discussed during team conference. Off schedule today due to T hanksgiving. Patient is making slow progress in not improving as much as we would like. Will not be able to be home alone in her current state. Will need supervision and assistance throughout the day and after speaking with the patient she does not have this availability at home with her daughter. We'll likely need to transfer to facility in the interim until and if she is able to recover more function to be modified independent at home alone. Patient has decreased her oral intake. All records, vitals, labs and medications were reviewed. No other issues per patient, nursing or therapy. Objective - Exam Narrative Exam: MUSCULOSKELETAL SPECIALTY EXAM CONSTITUTIONAL: Well developed, well nourished, appropriately groomed. RIGHT hand dominant. RESPIRATORY: Clear to auscultation bilaterally, no increased work of breathing CARDIOVASCULAR: Regular Rate/ Rhythm, no swelling, edema or tenderness in BUE or BLE. All extremities warm. GI: + bowel sounds, soft, NTTP, nondistended. INTEGUMENTARY: Normal, no lesion, rash, masses or bruising noted in extremities. MUSCULOSKELETAL: Slight right shoulder sublux, otherwise BUE and BLE normal without defect, crepitus, subluxation, effusion, arthritic changes or TTP. R 2/5 UE, 2/5 LE weaker than on admission L 5/5 ROM decreased on right Tone increased on RUE, normal otherwise NEURO: CN VII : Right facial droop CN XI : Decreased shoulder shrug on right, normal on left and head rotation Sensation intact in all extremities with extinction on right. No tremor noted in 4 extremities. Naming and repetition intact. Follows 2 step commands. Aphasia not appreciated Dysarthria not appreciated Dysphagia not appreciated Neglect not appreciated POSTURE and GAIT: Sitting posture good. Balance appears reasonable. Gait slow, with AFO, brace and manual assist to advance LE. PSYCH: Alert, oriented x3, affect appears flat. Insight appears intact. - Constitutional Vitals: Vital Signs - 12hr 02/02/19 02/02/19 02/02/19 00:34 00:36 05:15 Temperature 36.9 C 36.7 C Pulse Rate 85 91 H Respiratory 16 18 Rate Blood Pressure 120/66 Blood Pressure [Left] O2 Sat by Pulse 95 97 Oximetry 02/02/19 02/02/19 05:16 07:35 Temperature 36.1 C L Pulse Rate 77 Respiratory 20 Rate Blood Pressure 127/52 Blood Pressure 123/62 [Left] O2 Sat by Pulse 100 Oximetry - Allied health notes Allied health notes reviewed: nursing, PT, ST, OT FIMS assessment as documented by PT/OT/ST: Social interaction/Memory/Problem solving Social Interaction FIM Score 6. Mod. [place] (Mostly appropriate. May need meds. No supv.) Memory FIM Score 7. Complete [place] (Remembers people and routines.) Problem Solving FIM Score 7. Complete [place] (Solves complex problems. Self corrects.) Transfers Mode of Locomotion: Wheelchair Bed/Chair/Wheelchair Transfers 3. Moderate Assistance (Patient = 50% or more. FIM Score Some lifting.) Locomotion- walk/wheelchair Most Frequent Mode of Wheelchair Locomotion: Ambulation Distance 50 Walking FIM Score 3. Moderate Assistance (Patient=50% or more. Lifting. Minimum 150 ft.) Wheelchair Propulsion Distance 75 Wheelchair FIM Score 5. Supervision (Minimum 150 ft. supv./cues or 50 ft. independently.) Eating Eating FIM Score 4. Minimal Assistance (Patient = 75% or more) Dressing-Upper body Patient retrieves clothing No items: Patient applies/removes UE No prosthesis or orthosis: Upper Body Dressing FIM Score 2. Maximal Assistance (Patient = 25% or more) Dressing-lower body Patient retrieves clothing No items: Patient applies/removes LE No prosthesis or orthosis: Lower Body Dressing FIM Score 1. Total Assistance (Patient less than 25%) - Labs CBC & Chem 7: 02/01/19 07:38 01/26/19 07:28 Labs: Laboratory Results - last 72 hr 01/30/19 01/30/19 01/30/19 11:23 16:28 19:55 WBC RBC Hgb Hct MCV MCH MCHC RDW Plt Count Lymph % (Auto) [place] % (Auto) Eos % (Auto) Baso % (Auto) Lymph # [place] # Eos # Baso # Seg Neutrophils % Seg Neutrophils # POC Glucose 191 H 96 114 H 01/31/19 01/31/19 01/31/19 07:41 12:05 16:48 WBC RBC Hgb Hct MCV MCH MCHC RDW Plt Count Lymph % (Auto) [place] % (Auto) Eos % (Auto) Baso % (Auto) Lymph # [place] # Eos # Baso # Seg Neutrophils % Seg Neutrophils # POC Glucose 105 170 H 102 01/31/19 02/01/19 02/01/19 21:44 07:38 07:51 WBC 5.2 RBC 3.91 Hgb 7.7 L Hct 24.9 L MCV 64 L MCH 20 L MCHC 31 RDW 19.2 H Plt Count 286 Lymph % (Auto) 20.6 [place] % (Auto) 10.0 H Eos % (Auto) 6.5 H Baso % (Auto) 1.3 Lymph # 1.1 L [place] # 0.5 Eos # 0.3 Baso # 0.1 Seg Neutrophils % 61.6 Seg Neutrophils # 3.2 POC Glucose 96 96 02/01/19 02/01/19 02/01/19 12:29 16:25 21:01 WBC RBC Hgb Hct MCV MCH MCHC RDW Plt Count Lymph % (Auto) [place] % (Auto) Eos % (Auto) Baso % (Auto) Lymph # [place] # Eos # Baso # Seg Neutrophils % Seg Neutrophils # POC Glucose 157 H 116 H 64 L 02/01/19 02/02/19 21:41 07:45 WBC RBC Hgb Hct MCV MCH MCHC RDW Plt Count Lymph % (Auto) [place] % (Auto) Eos % (Auto) Baso % (Auto) Lymph # [place] # Eos # Baso # Seg Neutrophils % Seg Neutrophils # POC Glucose 89 65 L Assessment and Plan CVA: Continue secondary stroke prevention. Discussed prognosis and recovery time frame with patient. Explained secondary stroke prevention. Discussed access to outpatient healthcare as well as her need to discontinue tobacco use. Diabetes, poorly controlled: Continue medications and adjust as needed for improved glycemic control. A1c greater than 13 at outside hospital. We'll need to follow-up with a new PCP and also will need diabetic teaching. Adjust glimepiride Constipation: Start bowel medications. Will use suppository tonight as it's been a week since she's had a bowel movement. Anemia: likely ACD with an acute component - NEG FOBT. Pt denies any known issues previously of GIB or anemia issues. 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 R26.2 Difficulty walking: PT will work on gait training and proper use of assistive devices and advance as appropriate to use of stairs and outside ambulation on uneven surfaces. R26.81 Unsteadiness on feet: PT will work on improving static and dynamic sitting and standing balance as well as proper use of assistive devices to decrease risk of falls. R26.89 Abnormality of gait: PT will work to improve safety and efficiency of gait through neuromotor training and gait training along with instruction on proper use of assistive devices. M62.81 Muscle weakness: PT & OT will work on strengthening exercises to improve functional strength including mixture of closed and open kinetic chain exercise s. R53.81 Debility: PT & OT will work on improving overall functional status to improve participation with ADLs, mobility and social involvement. R53.83 Fatigue: PT & OT will work on improving endurance through aerobic exercises and therapeutic activity while monitoring patients tolerance for activity and vital signs as needed. DVT ppx: Lovenox Pain: Continue physical modalities in therapy and pain medications as needed to achieve functional pain control. Sleep: Monitor and address as needed. Bowel: Monitor and address as needed. Appetite: Monitor and address as needed. Discharge planning: Pending therapy progress and care plan meeting. Will continue discussion with therapy team, SW, patient and family. Restrictions/ Precautions: Falls, stroke WB status: FWB Functional Hx: ADLs: Independent Cognition: Independent Mobility: No AD Barriers to Discharge: Decreased mobility and ability to perform self care, balance deficits, weakness Estimated Length of Stay: 1421 days Discharge Destination: [facility]
[2019-02-02] MEDS: ASPIRIN EC 325 MG TAB PO SCH (12:15)
[2019-02-02] MEDS: DOCUSATE SODIUM 100 MG CAP PO SCH ×2 (12:16→21:46)
[2019-02-02] MEDS: ENOXAPARIN 40 MG/0.4 ML INJ SUB-Q SCH (12:17)
[2019-02-02] MEDS: LISINOPRIL 10 MG TAB PO SCH (12:19)
[2019-02-03] MEDS: INSULIN LISPRO 100 UNIT/ML SUB-Q SCH ×5 (07:04→22:19)
[2019-02-03 07:21] LABS: Hematocrit 26.9 % (30.3-42.9); Hemoglobin 8.2 gm/dl (10.1-14.3); Mean Corpuscular HGB Conc 31 % (30-34); Platelet Count 349 K/mm3 (140-440); Red Cell Distribution Width 18.7 % (13.2-15.2)
[2019-02-03 07:39] LABS: Mean Corpuscular Volume 64 fl (79-97)
[2019-02-03 07:42] LABS: BUN/Creatinine Ratio 23; Blood Urea Nitrogen 21 mg/dL (7-17); Hemolysis Index 0
--- NOTE | 2019-02-03 08:08 | Progress Note ---
Subjective Date of service: 02/03/19 Principal diagnosis: CVA Interval history: 68-year-old female who presented with progressive right-sided weakness over a period of 2 weeks. After symptoms had not improved in that. At time she decided to seek assistance at the ER. She was admitted for presumptive CVA, CT of the head showed bilateral basal ganglia age indeterminate infarcts. Later an MRI was obtained which showed chronic small vessel disease and multiple lacunar infarcts but no findings of an acute CVA (however a left MCA CVA was mentioned in discharge paperwork, perhaps they were able to see something on imaging that the radiologist missed and that I cannot see with just the available report). She does not seek medical treatment on a regular basis and has untreated type 2 diabetes, A1c is 13.3. She was also found to be anemic but does not appear to have been treated for iron deficiency. We will reorder an anemia workup and treat appropriately. She was seen by therapy and determined to be a good candidate for acute inpatient rehabilitation. Patient also states that she does not have part B for her Medicare and does not see an physician on the outside. We'll need to have social work speak with her and help her with some programs to get her better coverage if she will need to have outpatient follow-up going forward with the stroke and the poorly controlled diabetes. Patient is participating in therapy and making reasonable progress. Taking rest breaks as needed. +BM. Denies pain, palpitations, dyspnea, cough, N/V, or joint pain. Vital signs stable. GLU in better range after reduction of glimiperide. Poor return in RUE/RLE, Discussed with patient. Denies depression/assistance for mood All records, vitals, labs and medications were reviewed. No other issues per patient, nursing or therapy. Objective - Exam Narrative Exam: MUSCULOSKELETAL SPECIALTY EXAM CONSTITUTIONAL: Well developed, well nourished, appropriately groomed. RIGHT hand dominant. RESPIRATORY: Clear to auscultation bilaterally, no increased work of breathing CARDIOVASCULAR: Regular Rate/ Rhythm, no swelling, edema or tenderness in BUE or BLE. All extremities warm. GI: + bowel sounds, soft, NTTP, nondistended. INTEGUMENTARY: Normal, no lesion, rash, masses or bruising noted in extremities. MUSCULOSKELETAL: Slight right shoulder sublux, otherwise BUE and BLE normal without defect, crepitus, subluxation, effusion, arthritic changes or TTP. R 2/5 UE, 2/5 LE weaker than on admission L 5/5 ROM decreased on right Tone increased on RUE, normal otherwise NEURO: CN VII : Right facial droop CN XI : Decreased shoulder shrug on right, normal on left and head rotation Sensation intact in all extremities with extinction on right. No tremor noted in 4 extremities. Naming and repetition intact. Follows 2 step commands. Aphasia not appreciated Dysarthria not appreciated Dysphagia not appreciated Neglect not appreciated POSTURE and GAIT: Sitting posture good. Balance appears reasonable. Gait slow, with AFO, brace and manual assist to advance LE. PSYCH: Alert, oriented x3, affect appears flat. Insight appears intact. - Allied health notes Allied health notes reviewed: nursing, PT, ST, OT FIMS assessment as documented by PT/OT/ST: Social interaction/Memory/Problem solving Social Interaction FIM Score 6. Mod. [place] (Mostly appropriate. May need meds. No supv.) Memory FIM Score 7. Complete [place] (Remembers people and routines.) Problem Solving FIM Score 7. Complete [place] (Solves complex problems. Self corrects.) Transfers Mode of Locomotion: Wheelchair Bed/Chair/Wheelchair Transfers 3. Moderate Assistance (Patient = 50% or more. FIM Score Some lifting.) Locomotion- walk/wheelchair Most Frequent Mode of Wheelchair Locomotion: Ambulation Distance 50 Walking FIM Score 3. Moderate Assistance (Patient=50% or more. Lifting. Minimum 150 ft.) Wheelchair Propulsion Distance 75 Wheelchair FIM Score 5. Supervision (Minimum 150 ft. supv./cues or 50 ft. independently.) Eating Eating FIM Score 4. Minimal Assistance (Patient = 75% or more) Dressing-Upper body Patient retrieves clothing No items: Patient applies/removes UE No prosthesis or orthosis: Upper Body Dressing FIM Score 2. Maximal Assistance (Patient = 25% or more) Dressing-lower body Patient retrieves clothing No items: Patient applies/removes LE No prosthesis or orthosis: Lower Body Dressing FIM Score 1. Total Assistance (Patient less than 25%) - Labs CBC & Chem 7: 02/03/19 07:04 02/03/19 07:04 Labs: Laboratory Results - last 72 hr 01/30/19 01/31/19 01/31/19 11:23 12:05 16:48 WBC RBC Hgb Hct MCV MCH MCHC RDW Plt Count Lymph % (Auto) [place] % (Auto) Eos % (Auto) Baso % (Auto) Lymph # [place] # Eos # Baso # Seg Neutrophils % Seg Neutrophils # Sodium Potassium Chloride Carbon Dioxide Anion Gap BUN Creatinine Estimated GFR BUN/Creatinine Ratio Glucose POC Glucose 191 H 170 H 102 Calcium 01/31/19 02/01/19 02/01/19 21:44 07:38 07:51 WBC 5.2 RBC 3.91 Hgb 7.7 L Hct 24.9 L MCV 64 L MCH 20 L MCHC 31 RDW 19.2 H Plt Count 286 Lymph % (Auto) 20.6 [place] % (Auto) 10.0 H Eos % (Auto) 6.5 H Baso % (Auto) 1.3 Lymph # 1.1 L [place] # 0.5 Eos # 0.3 Baso # 0.1 Seg Neutrophils % 61.6 Seg Neutrophils # 3.2 Sodium Potassium Chloride Carbon Dioxide Anion Gap BUN Creatinine Estimated GFR BUN/Creatinine Ratio Glucose POC Glucose 96 96 Calcium 02/01/19 02/01/19 02/01/19 12:29 16:25 21:01 WBC RBC Hgb Hct MCV MCH MCHC RDW Plt Count Lymph % (Auto) [place] % (Auto) Eos % (Auto) Baso % (Auto) Lymph # [place] # Eos # Baso # Seg Neutrophils % Seg Neutrophils # Sodium Potassium Chloride Carbon Dioxide Anion Gap BUN Creatinine Estimated GFR BUN/Creatinine Ratio Glucose POC Glucose 157 H 116 H 64 L Calcium 02/01/19 02/02/19 02/02/19 21:41 07:45 11:07 WBC RBC Hgb Hct MCV MCH MCHC RDW Plt Count Lymph % (Auto) [place] % (Auto) Eos % (Auto) Baso % (Auto) Lymph # [place] # Eos # Baso # Seg Neutrophils % Seg Neutrophils # Sodium Potassium Chloride Carbon Dioxide Anion Gap BUN Creatinine Estimated GFR BUN/Creatinine Ratio Glucose POC Glucose 89 65 L 89 Calcium 02/02/19 02/02/19 02/03/19 16:17 19:57 07:04 WBC 5.9 RBC 4.20 Hgb 8.2 L Hct 26.9 L MCV 64 L MCH 20 L MCHC 31 RDW 18.7 H Plt Count 349 Lymph % (Auto) [place] % (Auto) Eos % (Auto) Baso % (Auto) Lymph # [place] # Eos # Baso # Seg Neutrophils % Seg Neutrophils # Sodium Potassium Chloride Carbon Dioxide Anion Gap BUN Creatinine Estimated GFR BUN/Creatinine Ratio Glucose POC Glucose 88 109 H Calcium 02/03/19 02/03/19 07:04 07:59 WBC RBC Hgb Hct MCV MCH MCHC RDW Plt Count Lymph % (Auto) [place] % (Auto) Eos % (Auto) Baso % (Auto) Lymph # [place] # Eos # Baso # Seg Neutrophils % Seg Neutrophils # Sodium 138 Potassium 4.5 Chloride 100.2 Carbon Dioxide 20 L Anion Gap 22 BUN 21 H Creatinine 0.9 Estimated GFR > 60 BUN/Creatinine Ratio 23 Glucose 90 POC Glucose 93 Calcium 10.0 Assessment and Plan CVA: Continue secondary stroke prevention. Discussed prognosis and recovery time frame with patient. Explained secondary stroke prevention. Discussed access to outpatient healthcare as well as her need to discontinue tobacco use. Diabetes, poorly controlled: Continue medications and adjust as needed for improved glycemic control. A1c greater than 13 at outside hospital. We'll need to follow-up with a new PCP and also will need diabetic teaching. Continue to monitor Constipation: Start bowel medications. Will use suppository tonight as it's been a week since she's had a bowel movement. Anemia: likely ACD with an acute component - NEG FOBT. Pt denies any known issues previously of GIB or anemia issues. Hypertension: Start lisinopril and adjust for normotension Hypotensive episode -resolved after IVF, monitor Pharyngeal phase dysphagia: EMISSIONS REPAIR TECHNICIAN evaluation, modified barium swallow - continue with strategies Z73.6 ADL dysfunction: OT will work on improving ability to perform ADLs (including assistive devices) to increase independence and decrease caregiver burden and improve functional transfers and mobility training. R26.2 Difficulty walking: PT will work on gait training and proper use of assistive devices and advance as appropriate to use of stairs and outside ambulation on uneven surfaces. R26.81 Unsteadiness on feet: PT will work on improving static and dynamic sitting and standing balance as well as proper use of assistive devices to decrease risk of falls. R26.89 Abnormality of gait: PT will work to improve safety and efficiency of gait through neuromotor training and gait training along with instruction on proper use of assistive devices. M62.81 Muscle weakness: PT & OT will work on strengthening exercises to improve functional strength including mixture of closed and open kinetic chain exercises. R53.81 Debility: PT & OT will work on improving overall functional status to improve participation with ADLs, mobility and social involvement. R53.83 Fatigue: PT & OT will work on improving endurance through aerobic exercises and therapeutic activity while monitoring patients tolerance for activity and vital signs as needed. DVT ppx: Lovenox Pain: Continue physical modalities in therapy and pain medications as needed to achieve functional pain control. Sleep: Monitor and address as needed. Bowel: Monitor and address as needed. Appetite: Monitor and address as needed. Discharge planning: Pending therapy progress and care plan meeting. Will continue discussion with therapy team, SW, patient and family. Restrictions/ Precautions: Falls, stroke WB status: FWB Functional Hx: ADLs: Independent Cognition: Independent Mobility: No AD Barriers to Discharge: Decreased mobility and ability to perform self care, balance deficits, weakness Estimated Length of Stay: 1421 days Discharge Destination: Likely discharge to [facility] facility
[2019-02-03] MEDS: ENOXAPARIN 40 MG/0.4 ML INJ SUB-Q SCH (09:40)
[2019-02-03] MEDS: DOCUSATE SODIUM 100 MG CAP PO SCH ×2 (09:40→22:18)
[2019-02-03] MEDS: metFORMIN 500 MG TAB PO SCH ×2 (09:41→18:25)
[2019-02-03] MEDS: ASPIRIN EC 325 MG TAB PO SCH (09:41)
[2019-02-03] MEDS: GLIMEPIRIDE 2 MG TAB PO SCH (09:41)
[2019-02-03] MEDS: LISINOPRIL 10 MG TAB PO SCH (09:42)
[2019-02-04] MEDS: INSULIN LISPRO 100 UNIT/ML SUB-Q SCH (07:39)
[2019-02-04 08:05] VITALS: BP 123/59
[2019-02-04] MEDS: ENOXAPARIN 40 MG/0.4 ML INJ SUB-Q SCH (10:42)
[2019-02-04] MEDS: ASPIRIN EC 325 MG TAB PO SCH (10:42)
[2019-02-04] MEDS: LISINOPRIL 10 MG TAB PO SCH (10:43)
[2019-02-04] MEDS: DOCUSATE SODIUM 100 MG CAP PO SCH (10:43)
[2019-02-04] MEDS: GLIMEPIRIDE 2 MG TAB PO SCH (10:43)
[2019-02-04] MEDS: metFORMIN 500 MG TAB PO SCH (10:44)
--- NOTE | 2019-02-04 11:52 | Discharge Summary ---
Providers - Providers Date of Admission: 01/14/19 15:47 Date of discharge: 02/04/19 Attending physician: DELGADO COLINDRES III, MD 01/14/19 13:44 Occupational Therapy Evaluate and Treat [CONS] Routine Comment: Reason For Exam: ADL dysfunction Physical Therapy Evaluation and Treat [CONS] Routine Comment: Reason For Exam: Mobility Dysfunction 01/14/19 13:57 Speech Therapy Evaluation and Treat [CONS] Routine Reason For Exam: CVA - cognitive eval 01/14/19 14:02 Consult to Case Management [CONS] Routine Services Needed at Discharge: Home Health Services Notified:: cm notified 01/19/19 11:11 Speech Therapy Evaluation and Treat [CONS] Routine Reason For Exam: cva, aspiration Primary care physician: PROFESSOR OF COMMUNICATION Hospitalization Reason for admission: CVA Condition: Good Pertinent studies: Modified barium swallow study dated 01/20/2019: Patient was evaluated with pure, mixed, solid and thin consistencies. Evidence of early spillage and lingual pumping with all consistencies. No aspiration or penetration noted. Chin tuck and head tilt maneuver did not improve findings. Hospital course: 68-year-old female who presented with progressive right-sided weakness over a period of 2 weeks. After symptoms had not improved in that. At time she decided to seek assistance at the ER. She was admitted for presumptive CVA, CT of the head showed bilateral basal ganglia age indeterminate infarcts. Later an MRI was obtained which showed chronic small vessel disease and multiple lacunar infarcts but no findings of an acute CVA (however a left MCA CVA was mentioned in discharge paperwork, perhaps they were able to see something on imaging that the radiologist missed and that I cannot see with just the available report). She does not seek medical treatment on a regular basis and has untreated type 2 diabetes, A1c is 13.3. She was also found to be anemic but does not appear to have been treated for iron deficiency. We will reorder an anemia workup and treat appropriately. She was seen by therapy and determined to be a good candidate for acute inpatient rehabilitation. Patient also states that she does not have part B for her Medicare and does not see an physician on the outside. We'll need to have social work speak with her and help her with some programs to get her better coverage if she will need to have outpatient follow-up going forward with the stroke and the poorly controlled diabetes. Patient is participating in therapy and making slow progress. Last BM was today per patient. Denies pain, palpitations, dyspnea, cough, N/V, or joint pain. Patient had poorly controlled diabetes with an A1c of 13.3 at outside facility upon presentation. Per the patient she has not sought medical care in quite some time. Blood glucose has been controlled utilizing oral medications. Patient also developed hypertension which was controlled on low-dose lisinopril. Patient has anemia of chronic disease which has slowly improved during her time with us. Last hemoglobin was 8.2. Iron level is 14, TIBC 266, ferritin 315, vitamin B12 1169, folate 11.44. Denies depression/assistance for mood, however she does appear to have a flat affect. Would continue to monitor and encourage her to accept treatment for post stroke depression at some point in the future. Our efforts have not been fruitful as of yet as she continues to deny assistance. 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 She does have signs of dysphagia but no overt aspiration. She is tolerating by mouth intake with regular consistency and thin liquids, meds crushed in applesauce/pudding. PSYCHOLOGIST COUNSELING was utilizing a chin tuck strategy to improve swallow. Upon initial presentation she did not have noticeable dysphagia. Her strength also declined slightly shortly after her arrival. On initial exam she was 3/5 on her right side for strength and this is declined to 2/5. This is likely due to the area of the penumbra which most likely worsened slightly after admission. Due to this worsening and function we were unable to make the progress we initially were hopeful and seeing. Family is unable to provide 24-hour supervision/assistance for her and after discussion with patient and family opted for placement in a SNF in order to allow her to regain more function. At time of discharge patient required mod assist for transfers, dressing, and toileting. Bed mobility was min assist, and at times she was able to perform stand pivot transfers min assist. With max assist she was able to ambulate with an AFO, hemiwalker and assistance to advance the right leg. At times she was mod assist for sit to stand activities. Disposition: DC/[place]-03 SNF W [facility] CERT Time spent for discharge: >30mins Core Measure Documentation - Palliative Care Palliative Care/ Comfort Measures: Not Applicable - Core Measures Any of the following diagnoses?: stroke - Stroke Discharge Requirements Statin for LDL = or >70 mg/dl on DC: Yes Anticoag for atrial fib/atrial flutter: Not Applicable Antithrombotic for ischemic stroke: Yes Exam - Physical Exam Narrative exam: MUSCULOSKELETAL SPECIALTY EXAM CONSTITUTIONAL: Well developed, well nourished, appropriately groomed. RIGHT hand dominant. RESPIRATORY: Clear to auscultation bilaterally, no increased work of breathing CARDIOVASCULAR: Regular Rate/ Rhythm, no swelling, edema or tenderness in BUE or BLE. All extremities warm. GI: + bowel sounds, soft, NTTP, nondistended. INTEGUMENTARY: Normal, no lesion, rash, masses or bruising noted in extremities. MUSCULOSKELETAL: Slight right shoulder sublux, otherwise BUE and BLE normal without defect, crepitus, subluxation, effusion, arthritic changes or TTP. R 2/5 UE, 2/5 LE - both slightly weaker than on admission L 5/5 ROM decreased on right Tone increased on RUE, normal otherwise NEURO: CN VII : Right facial droop CN XI : Decreased shoulder shrug on right, normal on left and head rotation Sensation intact in all extremities with extinction on right. No tremor noted in 4 extremities. Naming and repetition intact. Follows 2 step commands. Aphasia not appreciated Dysarthria not appreciated Dysphagia slight without aspiration, better with head turn and chin tuck. Neglect not appreciated POSTURE and GAIT: Sitting posture good. Balance appears reasonable. Gait slow, with AFO, brace and manual assist to advance LE. PSYCH: Alert, oriented x3, affect appears flat. Insight appears intact. - Constitutional Vitals: Temp Pulse Resp BP Pulse Ox 36.6 C 82 18 123/59 98 02/04/19 07:16 02/04/19 07:16 02/04/19 07:16 02/04/19 07:16 02/04/19 07:16 Plan Activity: advance as tolerated, up only with assistance, fall precautions Diet: diabetic (regular/thin liquids. Meds crushed in applesauce. Sit upright for meals. Turn head to right with chin tuck with swallow.) Special Instructions: record daily BP diary, record blood sugar diary, follow up in rehab Durable Medical Equipment Needed Upon Discharge: other (wheelchair per [facility] facility and advance as tolerated) Additional Instructions: Monitor CBC, BMP, blood glucose. Care Plan Goals: Continue rehabilitation until patient is able to develop a return of function on the right side and is able to return home with minimal assistance. Monitor hypertension and adjust medications as needed for normotension. Monitor CBC, transfuse if hemoglobin drops below 7. Anemia has been improving. Monitor oral intake. Follow up with: PRIMARY CAREMD [Primary Care Provider] - 7 Days
== END 2019-02-04 16:00 | DRG 56 ==
LOC: UNDOADMIN 10:43 → 3A 10:43 → 3B 15:47
PROVIDERS: ADMIT Physical Medicine & Rehabilitation; ATTEND Physical Medicine & Rehabilitation
DX: I69.351 Hemiplegia and hemiparesis following cerebral infarction affecting right dominant side (principal); I63.9 Cerebral infarction, unspecified; E11.9 Type 2 diabetes mellitus without complications; D64.9 Anemia, unspecified; K59.00 Constipation, unspecified; M62.81 Muscle weakness (generalized); R53.81 Other malaise; Z82.49 Family history of ischemic heart disease and other diseases of the circulatory system
CPT/HCPCS: 36415; 74230; 80048; 80053; 80076; 82270; 82607; 82728; 82747; 82962; 83550; 83735; 85025; 85027; 86140; G0378; A9270-GY; J1650; J1815; J7030; Q0162

== ENCOUNTER 2019-02-19 22:26 | Emergency (ER) | payer SELFPAY ==
--- NOTE | 2019-02-19 22:59 | Emergency Department Report ---
ED General Adult HPI - General Chief complaint: Fall Stated complaint: FALL Time Seen by Provider: 02/19/19 22:42 Source: patient, EMS ( EMS documentation not available at time of chart dictation ), RN notes reviewed, old records reviewed Mode of arrival: Stretcher Limitations: Physical Limitation - History of Present Illness Initial comments: This is a 68-year-old female. This patient is not known to this provider previously. She has a history of stroke, presumably ischemic, right-sided weakness chronically. Also has a history of diabetes and hypertension. Her primary care doctor is Dr. Dwight Arana. She is sent to the emergency room from a local longterm because of a reported mechanical trip and fall. The patient denies physical pain. She has chronic right-sided weakness. She denies urinary symptoms. She denies chest pain, headache and neck pain. -: This evening Improves with: none Worsens with: none - Related Data Previous Rx's Medication Instructions Recorded Last Taken Type Acetaminophen [Acetaminophen TAB] 650 mg PO Q6H PRN tablet 02/04/19 Unknown Rx Aspirin EC 325 mg PO QDAY tablet 02/04/19 Unknown Rx AtorvaSTATin [Lipitor] 40 mg PO QHS tablet 02/04/19 Unknown Rx Docusate Sodium [Colace CAP] 100 mg PO BID capsule 02/04/19 Unknown Rx Glimepiride [Amaryl] 1 mg PO QDDIAB tablet 02/04/19 Unknown Rx Ondansetron [Zofran ODT TAB] 4 mg PO Q8H PRN tab.rapdis 02/04/19 Unknown Rx Polyethylene Glycol 3350 [Miralax 17 gm PO QDAY PRN powd.pack 02/04/19 Unknown Rx 3350] bisacodyL [Dulcolax suppos] 10 mg [place] QDAY PRN supp.rect 02/04/19 Unknown Rx lisinopriL [Zestril TAB] 5 mg PO QDAY tablet 02/04/19 Unknown Rx metFORMIN [Glucophage] 1,000 mg PO BIDDIAB tablet 02/04/19 Unknown Rx Nitrofurantoin [place]/M-Cryst 100 mg PO Q12HR #14 capsule 02/20/19 Unknown Rx [Macrobid CAP] Allergies Allergy/AdvReac Type Severity Reaction Status Date / Time No Known Allergies Allergy Verified 01/14/19 14:21 ED Review of Systems ROS: Stated complaint: FALL Other details as noted in HPI Constitutional: denies: fever Eyes: denies: eye discharge ENT: denies: congestion Cardiovascular: denies: syncope Gastrointestinal: denies: abdominal pain Genitourinary: denies: dysuria Musculoskeletal: denies: myalgia Neurological: weakness (chronic rigth sided) ED Past Medical Hx - Past Medical History Previous Medical History?: Yes Hx CVA: Yes (heemorrhagic stroke/ rigth sided deficits) Hx Diabetes: Yes Additional medical history: hyperlipidemia, anemia, - Surgical History Past Surgical History?: No - Social History Smoking Status: Unknown if ever smoked Substance Use Type: None - Medications Home Medications: Home Medications Medication Instructions Recorded Confirmed Last Taken Type Acetaminophen [Acetaminophen TAB] 650 mg PO Q6H PRN tablet 02/04/19 Unknown Rx Aspirin EC 325 mg PO QDAY tablet 02/04/19 Unknown Rx AtorvaSTATin [Lipitor] 40 mg PO QHS tablet 02/04/19 Unknown Rx Docusate Sodium [Colace CAP] 100 mg PO BID capsule 02/04/19 Unknown Rx Glimepiride [Amaryl] 1 mg PO QDDIAB tablet 02/04/19 Unknown Rx Ondansetron [Zofran ODT TAB] 4 mg PO Q8H PRN tab.rapdis 02/04/19 Unknown Rx Polyethylene Glycol 3350 [Miralax 17 gm PO QDAY PRN powd.pack 02/04/19 Unknown Rx 3350] bisacodyL [Dulcolax suppos] 10 mg [place] QDAY PRN supp.rect 02/04/19 Unknown Rx lisinopriL [Zestril TAB] 5 mg PO QDAY tablet 02/04/19 Unknown Rx metFORMIN [Glucophage] 1,000 mg PO BIDDIAB tablet 02/04/19 Unknown Rx Nitrofurantoin [place]/M-Cryst 100 mg PO Q12HR #14 capsule 02/20/19 Unknown Rx [Macrobid CAP] ED Physical Exam - General Limitations: Physical Limitation General appearance: alert, in no apparent distress - Head Head exam: Present: atraumatic, normocephalic - Eye Eye exam: Present: normal appearance, EOMI, other (visual acuity intact to finger counting and color perception of a close distance). Absent: nystagmus - ENT ENT exam: Present: normal exam, normal orophraynx, mucous membranes moist, normal external ear exam - Neck Neck exam: Present: normal inspection, full ROM. Absent: tenderness, meningismus - Respiratory Respiratory exam: Present: normal lung sounds bilaterally. Absent: respiratory distress - Cardiovascular Cardiovascular Exam: Present: regular rate, normal rhythm. Absent: systolic murmur, diastolic murmur, rubs, gallop - GI/Abdominal GI/Abdominal exam: Present: soft. Absent: distended, tenderness, rebound, rigid, pulsatile mass - Extremities Exam Extremities exam: Present: normal inspection (right upper extremity is partially contracted.), other (2+ pulses noted in the bilateral upper and lower extremities. There is no palpable cord. negative Homans sign. Muscular compartments are soft. The pelvis is stable.). Absent: pedal edema, joint swelling, calf tenderness - Back Exam Back exam: Present: normal inspection. Absent: tenderness, CVA tenderness (R), CVA tenderness (L), paraspinal tenderness, vertebral tenderness - Neurological Exam Neurological exam: Present: alert, motor sensory deficit (chronic weakness in the right arm and right leg), other (there is no facial droop. The tongue is midline. Extraocular movements are intact bilaterally. Sensation intact to light touch in 4 extremities. 5/5 strength bilateral left arm and left leg.) - Psychiatric Psychiatric exam: Present: flat affect - Skin Skin exam: Present: warm, dry, intact, normal color. Absent: rash ED Course Vital Signs 02/19/19 02/19/19 02/19/19 22:43 22:45 23:00 Temperature 99 F Pulse Rate 77 76 72 Respiratory 11 L 10 L 11 L Rate Blood Pressure 113/62 119/55 O2 Sat by Pulse 100 100 99 Oximetry 02/19/19 02/19/19 02/19/19 23:19 23:31 23:38 Temperature Pulse Rate 74 Respiratory 16 Rate Blood Pressure 119/55 124/60 O2 Sat by Pulse 100 100 Oximetry 02/19/19 02/19/19 02/20/19 23:45 23:58 00:00 Temperature Pulse Rate Respiratory Rate Blood Pressure 119/54 119/54 125/64 O2 Sat by Pulse 100 100 100 Oximetry 02/20/19 02/20/19 02/20/19 00:15 00:16 00:31 Temperature Pulse Rate 73 Respiratory 16 Rate Blood Pressure 121/58 122/55 O2 Sat by Pulse 100 100 Oximetry 02/20/19 02/20/19 02/20/19 00:45 01:00 01:15 Temperature Pulse Rate Respiratory Rate Blood Pressure 118/53 123/53 116/57 O2 Sat by Pulse 100 100 100 Oximetry 02/20/19 02/20/19 02/20/19 01:30 01:42 01:45 Temperature Pulse Rate 74 Respiratory 16 Rate Blood Pressure 124/58 117/67 O2 Sat by Pulse 99 100 Oximetry 02/20/19 02/20/19 02/20/19 02:00 02:15 02:30 Temperature Pulse Rate Respiratory Rate Blood Pressure 138/57 117/67 113/51 O2 Sat by Pulse 100 100 98 Oximetry 02/20/19 02/20/19 02/20/19 02:45 03:00 03:15 Temperature Pulse Rate Respiratory Rate Blood Pressure 118/61 118/58 125/67 O2 Sat by Pulse 100 100 100 Oximetry 02/20/19 02/20/19 02/20/19 03:31 03:45 04:00 Temperature Pulse Rate Respiratory Rate Blood Pressure 115/65 139/55 111/55 O2 Sat by Pulse 100 100 100 Oximetry 02/20/19 02/20/19 02/20/19 04:15 04:30 04:45 Temperature Pulse Rate Respiratory Rate Blood Pressure 114/56 132/62 114/56 O2 Sat by Pulse 100 100 98 Oximetry 02/20/19 02/20/19 02/20/19 05:01 05:15 05:30 Temperature Pulse Rate Respiratory Rate Blood Pressure 156/71 122/67 142/68 O2 Sat by Pulse 100 100 100 Oximetry 02/20/19 02/20/19 02/20/19 05:45 06:00 06:15 Temperature Pulse Rate Respiratory Rate Blood Pressure 132/63 136/64 136/64 O2 Sat by Pulse 100 100 100 Oximetry 02/20/19 02/20/19 02/20/19 06:30 06:45 07:01 Temperature Pulse Rate Respiratory Rate Blood Pressure 138/63 138/63 138/63 O2 Sat by Pulse 100 98 100 Oximetry 02/20/19 02/20/19 07:15 07:31 Temperature Pulse Rate Respiratory Rate Blood Pressure 138/63 138/63 O2 Sat by Pulse 100 100 Oximetry - Reevaluation(s) Reevaluation #1: 02/19/19 23:25 Differential diagnosis, including but not limited to: Mechanical fall, intracranial injury, medical clearance Assessment and plan: 68-year-old female status post reported mechanical fall. She is afebrile with reassuring vital signs. Her neurologic examination today is similar to her prior documented exam earlier on this month. She is protecting her airway at this time. We will check CT scan the brain, urinalysis, EKG and screening laboratory studies. Reevaluation #2: 02/20/19 01:36 Laboratory studies unremarkable. EKG reviewed and appreciated. CT scan negative for acute traumatic findings. Patient resting comfortably, and in no acute distress. ED Medical Decision Making - Lab Data Result diagrams: 02/19/19 23:22 02/19/19 23:22 Vital Signs 02/19/19 02/19/19 02/19/19 22:43 22:45 23:00 Temperature 99 F Pulse Rate 77 76 72 Respiratory 11 L 10 L 11 L Rate Blood Pressure 113/62 119/55 O2 Sat by Pulse 100 100 99 Oximetry - EKG Data -: EKG Interpreted by Oh EKG shows normal: sinus rhythm Rate: normal - EKG Data When compared to previous EKG there are: previous EKG unavailable 02/20/19 01:36 There is no prior EKG available for comparison. The EKG shows a sinus rhythm, instrument, left axis deviation, left anterior fascicular block, low voltage, QTC prolonged, not consistent with ST elevation myocardial infarction. - Radiology Data Radiology results: pending, report reviewed, image reviewed Noncontrast CT scan of the brain shows no acute findings. Chronic findings noted. Critical care attestation.: If time is entered above; I have spent that time in minutes in the direct care of this critically ill patient, excluding procedure time. ED Disposition Clinical Impression: History of fall, History of stroke, Right hemiparesis Disposition: DC-01 TO HOME OR SELFCARE Is pt being admited?: No Does the pt Need Aspirin: No Condition: Stable Additional Instructions: Physical activities as tolerated, weightbearing as tolerated. Recommend patient avoid sedating medications, such as Percocet and opioids. Recommend patient have outpatient evaluation by physical therapy to determine need for ambulatory assistance, such as with a walker, or cane. Recommend this evaluation take place within the next 3-5 days. Please return to the emergency room right with projectile vomiting, change in mental status, confusion, inability to tolerate liquid feeds, new, worsening or different symptoms not present on initial emergency room evaluation. Prescriptions: Nitrofurantoin [place]/M-Cryst [Macrobid CAP] 100 mg PO Q12HR #14 capsule Referrals: DWIGHT ARANA MD [Staff Physician] - 3-5 Days GIOVANNI VENTURA MD [Staff Physician] - 3-5 Days
--- NOTE | 2019-02-19 23:56 | Cat Scan Report ---
CT HEAD WITHOUT CONTRAST HISTORY: fall hit head chronic cva COMPARISON: None TECHNIQUE: CT imaging of the head was performed in the axial, sagittal, and coronal projections and bone algori thm in axial projection in the soft tissue algorithm. All CT scans at this location are performed using CT dose reduction for ALARA by means of automated e xposure control. CONTRAST: None. FINDINGS: Cerebral and Cerebellar Hemispheres: Moderate atrophy and deep white matter disease is present. Proba ble chronic changes of small infarct right basal ganglion region. No evidence of mass or mass effect. No midline shift. No acute hemorrhage. No acute cortical infarction. No extra-axial fluid collec tion. Ventricles: Normal in size and configuration for age. Osseous Structures: No significant abnormality. Visualized Paranasal Sinuses: No significant abnormality. Additional Findings: None IMPRESSION: 1. No acute intracranial abnormality. Please see comments NOTE: Acute infarct may not be visible by noncontrast CT. Signer Name: Andrey Carranza MD Signed: 02/19/2019 11:52 PM Workstation Name: [id number]
[2019-02-20 00:06] LABS: Hematocrit 26.4 % (30.3-42.9); Hemoglobin 8.1 gm/dl (10.1-14.3); Mean Corpuscular HGB Conc 31 % (30-34); Platelet Count 306 K/mm3 (140-440); Red Blood Count 4.09 M/mm3 (3.65-5.03); Red Cell Distribution Width 19.7 % (13.2-15.2)
[2019-02-20 00:15] LABS: Mean Corpuscular Volume 65 fl (79-97)
[2019-02-20 00:25] LABS: BUN/Creatinine Ratio 30; Blood Urea Nitrogen 30 mg/dL (7-17); Calcium 10.1 mg/dL (8.4-10.2); Hemolysis Index 0
[2019-02-20 02:24] LABS: Mucus,Urine FEW /HPF
[2019-02-20 02:29] LABS: Bilirubin,Urine Negative (Negative); Blood,Urine Negative (Negative)
[2019-02-20 02:30] LABS: Urobilinogen,Urine < 2.0 mg/dL (<2.0)
[2019-02-20 02:34] LABS: Color,Urine Yellow (Yellow)
[2019-02-20 07:39] VITALS: BP 138/63
== END 2019-02-20 07:34 | disposition home or self-care (01) ==
LOC: ED 22:26
DX: G81.91 Hemiplegia, unspecified affecting right dominant side (principal); Z86.73 Personal history of transient ischemic attack (TIA), and cerebral infarction without residual deficits
CPT/HCPCS: 36415; 70450; 80048; 81001; 82550; 83735; 85027; 87086; 93005; 93010